=== PATIENT | female | born 1990 | race Caucasian/White ===

== ENCOUNTER 2016-04-18 20:49 | Outpatient (CLI) | payer OTHER ==
[~2016-04-18] VITALS: Ht 165.1 cm; Wt 80.3 kg
[~2016-04-18 20:49] MED LIST: PREN1TAB79 PO
[2016-04-18] MEDS ORDERED: FOLI-49 PO (21:12)
[2016-04-18 21:13] VITALS: Ht 165.1 cm; Wt 80.3 kg
[2016-04-18 21:14] VITALS: BP 102/58; PULSE 79; RESP 18
[2016-04-18] MEDS ORDERED: TERBUTALINE 1 ML ONE (22:07)
[2016-04-18 22:28] LABS: URINE BLOOD (Dip) POC Negative (NEGATIVE)
[2016-04-18] MEDS ORDERED: TERBUTALINE 1 MG/ML INJ SC ONE (22:30)
[2016-04-18 22:51] LABS: ADD UMIC YES; URINE BILIRUBIN (Dip) NEGATIVE (NEGATIVE); URINE BLOOD (Dip) NEGATIVE (NEGATIVE); URINE COLOR LT. YELLOW (YELLOW); URINE GLUCOSE (Dip) NEGATIVE (NEGATIVE); URINE KETONES (Dip) NEGATIVE (NEGATIVE); URINE LEUKOCYTE ESTERASE (Dip) 1+ (NEGATIVE); URINE NITRITE (Dip) NEGATIVE (NEGATIVE); URINE TOTAL PROTEIN (Dip) NEGATIVE (NEGATIVE); URINE UROBILINOGEN (Dip) 0.2 E.U./dL (0.1-1.0)
[2016-04-18 23:06] LABS: BACTERIA,URINE MODERATE; SQUAMOUS EPITHELIAL CELL,UR MANY; URINE RBCS NONE SEEN /HPF (0)
--- NOTE | 2016-04-18 23:29 | RADRPT ---
PROCEDURE: ULTRASOUND OBSTETRICAL CLINICAL INDICATION: 25-year-old female with contractions for size and date determination . TECHNIQUE: Multiple sonographic images of the pelvis were obtained. The images were reviewed on a PACS workstation. COMPARISON: Ultrasound biophysical profile obtained concurrently. FINDINGS: There is a single viable intrauterine gestation. Cardiac activity is present with 111 beats per min rachel. There is a vertex presentation. Measurements were made in order to determine age. The res ults are as follows: BPD = 8.13 cm, HC = 30.26 cm, AC = 31.76 cm, FL = 6.96 cm. This yields and estimated gestational ag e of approximately 34 weeks 3 days. The estimated date of delivery is May 27, 2016. The EFW = 26 01 +/- 390 g (5 lb 12 oz). The GP is 55%. The placenta is posterior. There is no evidence for an abruption or placenta previa. IMPRESSION: 1. Single viable intrauterine gestation of approximately 34 weeks 3 days with vertex presentation. The estimated date of delivery is May 27, 2016. 2. The estimated weight is 2601 +/- 390 g (5 lb 12 oz). The GP is 55%. .Jono Mar MD, Date Time Electronically viewed and signed by .Jono Mar MD, MD on 04/18/2016 23:29 .M/
--- NOTE | 2016-04-18 23:30 | RADRPT ---
PROCEDURE: ULTRASOUND BIOPHYSICAL PROFILE CLINICAL INDICATION: 25-year-old female in labor for viability. TECHNIQUE: Multiple sonographic images were obtained in order to perform a biophysical profile The images were reviewed on a PACS workstation. COMPARISON: Ultrasound OB obtained concurrently; ultrasound biophysical profile March 18, 2016. FINDINGS: The cervix appears closed with a length of 5.1 cm measured transvaginally. There is a single viable intrauterine gestation. There is a vertex presentation. Cardiac activity is present at 111 beats p er minute. The placenta is anterior. The results of the biophysical profile are as follows: breathing movement = 2/2 Gross body movement = 2/2 tone = 2/2 Qualitative amniotic fluid volume = 2/2 Amniotic fluid index equals 11.8 cm. This yields a biophysical profile score of 8/8. IMPRESSION: Biophysical profile score is 8/8. .Jono Mar MD, Date Time Electronically viewed and signed by .Jono Mar MD, MD on 04/18/2016 23:30 .M/
--- NOTE | 2016-04-19 01:42 | TRIAGE ---
OB Triage Datetime Report Generated by CPN: 04/19/2016 01:41 Datetime: 04/19/2016 00:10 Stage of : OB Triage Labor Evaluation Frequency: None noted or palpated Monitor Mode: External Resting Tone [place]: Relaxed Heart Rate FHR Baseline Rate: 120 Monitor Mode: External US Variability: Moderate 6-25 bpm Accelerations: 15X15 Decelerations: None Category: Category I Pain Assessment Pain Scale: 0 Pain Presence: None/Denies Pain Type: N/A Pain Assessment Comments: Pt denies any further pain or cramping Datetime: 04/19/2016 00:00 Stage of : OB Triage Labor Evaluation Frequency: Occasional Monitor Mode: External Duration (sec)2399: 40-50 Quality: Mild Pattern: Normal: <= 5 Contractions in 10 Minutes Resting Tone [place]: Relaxed Heart Rate FHR Baseline Rate: 115 Monitor Mode: External US FHR Baseline Changes: No Baseline Change Variability: Moderate 6-25 bpm Accelerations: 15X15 Decelerations: None Category: Category I Datetime: 04/18/2016 23:00 Stage of : OB Triage Labor Evaluation Frequency: Irregular Monitor Mode: External Duration (sec)2399: 40-100 Quality: Mild Pattern: Normal: <= 5 Contractions in 10 Minutes Resting Tone [place]: Relaxed Heart Rate FHR Baseline Rate: 115 Monitor Mode: External US Variability: Moderate 6-25 bpm Accelerations: 15X15 Decelerations: None Category: Category I Datetime: 04/18/2016 22:04 Stage of : OB Triage Datetime: 04/18/2016 22:00 Stage of : OB Triage Labor Evaluation Frequency: 2-10 Monitor Mode: External Duration (sec)2399: 40-80 Quality: Mild Pattern: Normal: <= 5 Contractions in 10 Minutes Resting Tone [place]: Relaxed Heart Rate FHR Baseline Rate: 120 Monitor Mode: External US FHR Baseline Changes: No Baseline Change Variability: Moderate 6-25 bpm Accelerations: 15X15 Decelerations: None Category: Category I Datetime: 04/18/2016 21:30 Stage of : OB Triage Datetime: 04/18/2016 21:00 Stage of : OB Triage Time of Arrival: 04/18/2016 20:45 EGA: 34.6 Arrived By: Ambulatory Arrived From: Home Chief Complaint: Back pain _ uc's since 1700 about q5mins. Spotting for 4-5 days. Movement: Decreased Contractions: Regular Time Contractions Began: 04/18/2016 17:00 Contractions: q5mins Rupture of Membranes: Denies Vaginal Bleeding: Small Vaginal Discharge: Present Recent Sexual Intercouse: Denies Abdominal Trauma: Not Applicable Patient Complaints: Contractions; Cramping; Back Pain Time Provider Notified: 04/18/2016 22:00 Provider Notified: Initial Plan: EFM, NST Labor Evaluation Frequency: x1 Monitor Mode: External Duration (sec)2399: 110 Quality: Mild Pattern: Normal: <= 5 Contractions in 10 Minutes Resting Tone [place]: Relaxed Heart Rate FHR Baseline Rate: 120 Monitor Mode: External US Variability: Moderate 6-25 bpm Accelerations: 15X15 Decelerations: None Category: Category I Datetime: 04/18/2016 20:57 Stage of : OB Triage Assessment Type: Triage Maternal Assessment Level of Consciousness: Fully Conscious DTR's/Clonus: DTRs 2+; No Clonus Headache: Denies Blurred Vision: No Respiratory Effort: Unlabored; Regular Rhythm; Equal Expansion Breath Sounds, Left: Clear and Equal Breath Sounds, Right: Clear and Equal Nausea/Vomiting: Present (Annotations: Nausea only) RUQ Epigastric Pain: Denies Lower Extremities Edema: Bilateral Lower Extremities Degree: 1+ Upper Extremities Edema: None Degree: None Facial Edema: None Temperature Route: Oral Fall Risk Assessment History of Falling: (0) No Secondary Diagnosis: (0) No Ambulatory Aid: (0) Bedrest/Nurse Assist IV Therapy: (0) No Gait: (0) Normal/Bedrest/Immobile Mental Status: (0) Oriented to Own Ability Fall Score: 0 Fall Risk Score Definition: No Risk: No action required Pain Assessment Pain Scale: 3 Pain Presence: Intermittent Pain Type: Cramping; Contraction Pain Location: Abdomen; Back Pain Relief Measures: Comfort Measures Pain Assessment Comments: Pt states pain @3/10 at this time but reports it's as high as 10/10 with some uc's. Datetime: 04/18/2016 20:56 Monitor Mode: External Contraction Comments: [place] applied Datetime: 04/18/2016 20:55 Heart Rate FHR Baseline Rate: 120 Monitor Mode: External US Comments: EFM applied Datetime: 03/18/2016 09:59 Fall Score: 0 Fall Risk Score Definition: No Risk: No action required Datetime: 03/18/2016 09:50 EGA: 30.3 Datetime: 02/11/2016 22:02 EGA: 30.3 Datetime: 02/11/2016 22:00 EGA: 24.2
--- NOTE | 2016-04-19 03:07 | PN ---
Date/Time of Note Date/Time of Note DATE: 04/19/16 TIME: 03:00 OB Subjective Subjective Subjective 25 Year-old with SIUP at 34 6/7 presents with a chief complaint of decreased FM and vaginal spotting. She has been receiving her care with Dr. Bravo. She states good movement. She denies nausea, vomiting, shortness of breath, chest pain, and abdominal pain between contractions, headache, visual changes, vaginal bleeding or LOF. OB Objective Objective Objective General: Patient appears well, alert and oriented, NAD, appropriate mood and affect ABD: gravid, soft, non-tender. Back: No CVA tenderness (B/L) LE: No clubbing, cyanosis, edema, thigh or calf tenderness bilaterally FHT: 140 bpm , moderate variability with acceleration, no deceleration-category I Contractions: Q 3-7 min initially, occasional after receiving terbutaline x1 SVE: closed/thick/high/cephalic/ intact membrane OB Assessment/Plan Other plan: 25 Year-old with SIUP at 34 6/7 presents with decreased FM, vaginal spotting and PTC. - FHR: No sign of metabolic acidosis- Category I - Continuous EFM, toco - Contractions: Q 3-7 min initially, occasional after receiving terbutaline x1 - Reactive NST. - US: BPP: 8/8, CL: 5.1, no placental abnormalities - She received terbutaline x1, not feeling any ucs. She felt multiple FM during observation in triage. Patient reassured - Symptoms and sign of labor, preeclampsia, kick count discussed with patient, she voiced understanding. All of her questions answered. - Patient was discharged home in stable condition with the appropriate discharge instructions provided. I would like patient to have close follow-up with her primary physician or outpatient clinic in 1-2 days or return to the ER for worsening symptoms or any other urgent concerns. MERCY VICTOR Apr 19, 2016 03:07
== END 2016-04-19 00:18 | disposition home or self-care (01) ==
LOC: OBT 20:49 → L-D 20:52 → OBT 04-19 00:18
PROVIDERS: ATTEND Obstetrics & Gynecology
DX: O36.8130 Decreased fetal movements, third trimester, not applicable or unspecified (principal); O26.853 Spotting complicating pregnancy, third trimester; O60.03 Preterm labor without delivery, third trimester; Z3A.34 34 weeks gestation of pregnancy
CPT/HCPCS: 76815; 76817; 76818; 81001; 87086; 96372; J3105; Z7500; 81003; G0463

== ENCOUNTER 2016-05-01 13:31 | Outpatient (CLI) | payer OTHER ==
[~2016-05-01] VITALS: Ht 165.1 cm; Wt 79.8 kg
[~2016-05-01 13:31] MED LIST changes: +FOLI-49 PO
[2016-05-01 13:40] VITALS: Ht 165.1 cm; Wt 79.8 kg
[2016-05-01 13:41] VITALS: BP 100/59; PULSE 89; RESP 18
[2016-05-01] MEDS: LACTATED RINGER'S 1,000 ML IV* SCH ×2 (14:03→14:52)
--- NOTE | 2016-05-01 15:53 | RADRPT ---
PROCEDURE: OB ultrasound for biophysical profile CLINICAL INDICATION: . TECHNIQUE: Multiple sonographic images of the pelvis were obtained. Transabdominal view of the gr avid uterus are available for review. The images were reviewed on a PACS workstation. COMPARISON: 04/18/2016 FINDINGS: breathing movement = 2/2 tone = 2/2 motion = 2/2 FELY = 2/2 FELY = 11.1 cm Single live intrauterine with cardiac activity. Heart rate equals 141 bpm. IMPRESSION: 1. Single viable intrauterine gestation. 2. Biophysical profile = 8/8. 3. FELY = 11.1 cm. RPTAT: QQ .Gregory Baez MD, Date Time Electronically viewed and signed by .Gregory Baez MD, on 05/01/2016 15:53 .M/
--- NOTE | 2016-05-01 16:20 | TRIAGE ---
OB Triage Datetime Report Generated by CPN: 05/01/2016 16:19 Datetime: 05/01/2016 15:14 Monitor Mode: External US Datetime: 05/01/2016 14:54 Labor Evaluation Frequency: 3-10 Monitor Mode: External Duration (sec)2399: 50-70 Quality: Mild Pattern: Normal: <= 5 Contractions in 10 Minutes Resting Tone [place]: Relaxed Heart Rate FHR Baseline Rate: 130 Monitor Mode: External US FHR Baseline Changes: No Baseline Change Variability: Moderate 6-25 bpm Accelerations: 15X15 Decelerations: None Category: Category I Pain Assessment Pain Scale: 6 Pain Presence: Intermittent Pain Type: Contraction Pain Location: Abdomen; Back Pain Relief Measures: Comfort Measures Membrane Status: Intact Datetime: 05/01/2016 14:00 Labor Evaluation Frequency: 2-7 Monitor Mode: External Duration (sec)2399: 50-70 Quality: Mild Pattern: Normal: <= 5 Contractions in 10 Minutes Resting Tone [place]: Relaxed Heart Rate FHR Baseline Rate: 130 Monitor Mode: External US FHR Baseline Changes: No Baseline Change Variability: Moderate 6-25 bpm Accelerations: 15X15 Decelerations: None Category: Category I Pain Assessment Pain Scale: 8 Pain Presence: Intermittent Pain Type: Contraction Pain Location: Abdomen; Back Pain Relief Measures: Comfort Measures Datetime: 05/01/2016 13:46 Vaginal Exam Dilatation (cms): 1.0 Effacement (%): 50 Station: -3 Exam By: ARIADNE Vaginal Bleeding: None Cervix, Consistency: Moderate Cervix, Position: Posterior Presentation 'A': Cephalic Datetime: 05/01/2016 13:40 Assessment Type: Triage Maternal Assessment Level of Consciousness: Fully Conscious DTR's/Clonus: DTRs 2+; No Clonus Headache: Denies Blurred Vision: No Respiratory Effort: Unlabored; Regular Rhythm Breath Sounds, Left: Clear and Equal Breath Sounds, Right: Clear and Equal Nausea/Vomiting: Denies RUQ Epigastric Pain: Denies Lower Extremities Edema: None Degree: None Upper Extremities Edema: None Degree: None Facial Edema: None Fall Risk Assessment History of Falling: (0) No Secondary Diagnosis: (0) No Ambulatory Aid: (0) Bedrest/Nurse Assist IV Therapy: (0) No Gait: (0) Normal/Bedrest/Immobile Mental Status: (0) Oriented to Own Ability Fall Score: 0 Fall Risk Score Definition: No Risk: No action required Datetime: 05/01/2016 13:39 Time of Arrival: 05/01/2016 13:30 EGA: 36.5 Arrived By: Wheelchair Arrived From: Home Chief Complaint: PT PRESENTS TO TRIAGE COMPLAINING OF CONTRACTIONS SINCE 1000 Movement: Present Contractions: Regular Time Contractions Began: 05/01/2016 10:00 Contractions: Q5 MINUTES Rupture of Membranes: Denies Vaginal Bleeding: None Vaginal Discharge: Denies Recent Sexual Intercouse: Denies Abdominal Trauma: Not Applicable Patient Complaints: Contractions Time Provider Notified: 05/01/2016 13:52 Provider Notified: [facility] Initial Plan: EFM/SVE/BPP/IV HYDRATION Datetime: 05/01/2016 13:37 Monitor Mode: External Monitor Mode: External US Pain Assessment Pain Scale: 8 Pain Presence: Intermittent Pain Type: Contraction Pain Location: Abdomen; Back Pain Relief Measures: Comfort Measures Datetime: 04/18/2016 21:00 EGA: 34.6 Datetime: 04/18/2016 20:57 Fall Score: 0 Fall Risk Score Definition: No Risk: No action required Datetime: 03/18/2016 09:59 Fall Score: 0 Fall Risk Score Definition: No Risk: No action required Datetime: 03/18/2016 09:50 EGA: 30.3 Datetime: 02/11/2016 22:02 EGA: 30.3 Datetime: 02/11/2016 22:00 EGA: 24.2
== END 2016-05-01 16:18 | disposition home or self-care (01) ==
LOC: OBT 13:31 → L-D 13:32 → OBT 16:18
PROVIDERS: ATTEND Obstetrics & Gynecology
DX: O60.03 Preterm labor without delivery, third trimester (principal); Z3A.36 36 weeks gestation of pregnancy
CPT/HCPCS: 36415; 76818; 96360; 96361; J7120; Z7500; G0463

== ENCOUNTER 2016-05-03 16:25 | Outpatient (CLI) | payer MEDICAID ==
[~2016-05-03] VITALS: Ht 165.1 cm; Wt 80.6 kg
[2016-05-03] MEDS ORDERED: LACTATED RINGER'S 1,000 ML IV SCH (17:00)
[2016-05-03] MEDS ORDERED: LACTATED RINGER'S 500 ML IV ONE (17:00)
[2016-05-03 17:02] VITALS: BP 112/65; PULSE 75; RESP 20; Ht 165.1 cm; Wt 80.6 kg
[2016-05-03 18:04] LABS: ADD UMIC YES; URINE BILIRUBIN (Dip) NEGATIVE (NEGATIVE); URINE BLOOD (Dip) TRACE (NEGATIVE); URINE COLOR LT. YELLOW (YELLOW); URINE GLUCOSE (Dip) NEGATIVE (NEGATIVE); URINE KETONES (Dip) NEGATIVE (NEGATIVE); URINE LEUKOCYTE ESTERASE (Dip) TRACE (NEGATIVE); URINE NITRITE (Dip) NEGATIVE (NEGATIVE); URINE TOTAL PROTEIN (Dip) NEGATIVE (NEGATIVE); URINE UROBILINOGEN (Dip) 0.2 E.U./dL (0.1-1.0)
[2016-05-03 18:22] LABS: BACTERIA,URINE FEW; SQUAMOUS EPITHELIAL CELL,UR MANY; URINE RBCS 0-2 /HPF (0)
--- NOTE | 2016-05-03 21:53 | QN ---
Documentation Comment Laborist CHIKIS PT 25 y.o. A1 with an IUP at 37 weeks c/o UC's since 1100 q 3 minutes.No vaginal bleeding. No leaking. PMHx: asthma. PSHx: none. POBHx: for all of her other pregnancies the pt was induced at 42 weeks, 41 weeks , and 40 weeks and the labors were from 40 hours long to the last that took 11 hours. NKDA. Social: Pt's mother called and told the RN that this pt has a h/o methamphetamine use and she has custody of her other children. BP= 112/65. Vaginal exam: 50%/2-3/-3. BPP 8/8 with an FELY of 12.3. NST: baseline 125 bpm with accels to 140 bpm. No decels. UC's were3-7 minutes but by d/c they had spaced out a fair amount. No change in her cervix after 3 hours of observation. A: IUP at 37 weeks. False labor. P: D/C home. Labor precautions reviewed. SHRUTHI DOW MD May 03, 2016 21:52
--- NOTE | 2016-05-04 00:32 | TRIAGE ---
OB Triage Datetime Report Generated by CPN: 05/04/2016 00:31 Datetime: 05/03/2016 21:35 Stage of : OB Triage Datetime: 05/03/2016 21:30 Stage of : OB Triage Datetime: 05/03/2016 21:15 Stage of : OB Triage Datetime: 05/03/2016 21:00 Stage of : OB Triage Monitor Mode: External Duration (sec)2399: 60 Quality: Mild Pattern: Normal: <= 5 Contractions in 10 Minutes Resting Tone [place]: Relaxed Heart Rate FHR Baseline Rate: 125 Monitor Mode: External US FHR Baseline Changes: No Baseline Change Variability: Moderate 6-25 bpm Accelerations: 15X15 Decelerations: None Category: Category I Datetime: 05/03/2016 20:53 Stage of : OB Triage Datetime: 05/03/2016 20:29 Stage of : OB Triage Datetime: 05/03/2016 20:08 Stage of : OB Triage Datetime: 05/03/2016 20:00 Labor Evaluation Frequency: 2-4 Monitor Mode: External Duration (sec)2399: 50-100 Quality: Mild Pattern: Normal: <= 5 Contractions in 10 Minutes Resting Tone [place]: Relaxed Heart Rate FHR Baseline Rate: 125 Monitor Mode: External US FHR Baseline Changes: No Baseline Change Variability: Moderate 6-25 bpm Accelerations: 15X15 Decelerations: None Category: Category I Datetime: 05/03/2016 19:16 Vaginal Exam Dilatation (cms): 2.5 Effacement (%): 50 Station: -3 Exam By: FLORENTINO QUINTANILLA Vaginal Bleeding: Normal Show Cervix, Consistency: Moderate Cervix, Position: Posterior Presentation 'A': Cephalic Datetime: 05/03/2016 19:13 Stage of : OB Triage Labor Evaluation Frequency: 3-7 Monitor Mode: External Duration (sec)2399: 50-90 Quality: Strong Pattern: Normal: <= 5 Contractions in 10 Minutes Resting Tone [place]: Relaxed Heart Rate FHR Baseline Rate: 115 Monitor Mode: External US Variability: Moderate 6-25 bpm Accelerations: 15X15 Decelerations: None Category: Category I Pain Assessment Pain Scale: 0 Pain Presence: None/Denies Datetime: 05/03/2016 19:10 Assessment Type: Triage Maternal Assessment Level of Consciousness: Fully Conscious DTR's/Clonus: DTRs 2+; No Clonus Headache: Denies Blurred Vision: No Respiratory Effort: Unlabored; Regular Rhythm; Equal Expansion Breath Sounds, Left: Clear and Equal Breath Sounds, Right: Clear and Equal Nausea/Vomiting: Denies RUQ Epigastric Pain: Denies Lower Extremities Edema: Bilateral Lower Extremities Degree: 1+ Upper Extremities Edema: None Degree: None Facial Edema: None Fall Risk Assessment History of Falling: (0) No Secondary Diagnosis: (0) No Ambulatory Aid: (0) Bedrest/Nurse Assist IV Therapy: (0) No Gait: (0) Normal/Bedrest/Immobile Mental Status: (0) Oriented to Own Ability Fall Score: 0 Fall Risk Score Definition: No Risk: No action required Datetime: 05/03/2016 17:53 Labor Evaluation Frequency: 2-7 Monitor Mode: External Duration (sec)2399: 50-90 Quality: Moderate Pattern: Normal: <= 5 Contractions in 10 Minutes Resting Tone [place]: Relaxed Heart Rate FHR Baseline Rate: 125 Monitor Mode: External US Variability: Moderate 6-25 bpm Accelerations: 15X15 Decelerations: None Category: Category I Datetime: 05/03/2016 16:43 Assessment Type: Triage Maternal Assessment Level of Consciousness: Fully Conscious DTR's/Clonus: DTRs 2+; No Clonus Headache: Denies Blurred Vision: No Respiratory Effort: Unlabored; Regular Rhythm; Equal Expansion Breath Sounds, Left: Clear and Equal Breath Sounds, Right: Clear and Equal Nausea/Vomiting: Denies RUQ Epigastric Pain: Denies Lower Extremities Edema: Bilateral Lower Extremities Degree: 1+ Upper Extremities Edema: None Degree: None Facial Edema: None Temperature Route: Axillary Fall Risk Assessment History of Falling: (0) No Secondary Diagnosis: (0) No Ambulatory Aid: (0) Bedrest/Nurse Assist IV Therapy: (0) No Gait: (0) Normal/Bedrest/Immobile Mental Status: (0) Oriented to Own Ability Fall Score: 0 Fall Risk Score Definition: No Risk: No action required Datetime: 05/03/2016 16:40 Time of Arrival: 05/03/2016 16:26 EGA: 37.0 Arrived By: Ambulatory Arrived From: Home Chief Complaint: CONTRACTIONS EVERY 3 MINS Movement: Present Contractions: Regular Time Contractions Began: 05/03/2016 11:00 Contractions: 2-6 Rupture of Membranes: Denies Vaginal Bleeding: None Vaginal Discharge: Denies Recent Sexual Intercouse: Denies Abdominal Trauma: Not Applicable Patient Complaints: Contractions Additional Patient Complaints: LYNDA CHARGE NURSE CALLED INFORMED THAT PT MOM CALLED AND INFORMED TH AT SHE IS TAKING CARE OF HER DAUGHTERS CHILDREN DUE TO 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 MATIAS Initial Plan: SVE, NST, MONITOR FOR 3 HOURS AND RECHECK FOR CERVICAL CHANGE, BPP/FELY Datetime: 05/03/2016 16:31 Pain Assessment Pain Scale: 8 Pain Presence: Intermittent Pain Type: Contraction Pain Location: Abdomen; Back Pain Goal: 2 Vaginal Exam Dilatation (cms): 2.5 Effacement (%): 50 Station: -3 Exam By: FLORENTINO RN Cervix, Consistency: Soft Cervix, Position: Posterior Presentation 'A': Cephalic Datetime: 05/01/2016 16:01 Labor Evaluation Frequency: X4 Monitor Mode: External Duration (sec)2399: 40-60 Quality: Mild Pattern: Normal: <= 5 Contractions in 10 Minutes Resting Tone [place]: Relaxed Heart Rate FHR Baseline Rate: 130 Monitor Mode: External US FHR Baseline Changes: No Baseline Change Variability: Moderate 6-25 bpm Accelerations: 15X15 Decelerations: None Category: Category I Pain Assessment Pain Scale: 6 Pain Presence: Intermittent Pain Type: Contraction Pain Location: Abdomen; Back Pain Relief Measures: Comfort Measures Datetime: 05/01/2016 15:59 Vaginal Exam Dilatation (cms): 1.0 Effacement (%): 50 Station: -3 Exam By: ARIADNE Vaginal Bleeding: None Cervix, Consistency: Moderate Cervix, Position: Posterior Presentation 'A': Cephalic Datetime: 05/01/2016 13:40 Fall Score: 0 Fall Risk Score Definition: No Risk: No action required Datetime: 05/01/2016 13:39 EGA: 36.5 Datetime: 04/18/2016 21:00 EGA: 34.6 Datetime: 04/18/2016 20:57 Fall Score: 0 Fall Risk Score Definition: No Risk: No action required Datetime: 03/18/2016 09:59 Fall Score: 0 Fall Risk Score Definition: No Risk: No action required Datetime: 03/18/2016 09:50 EGA: 30.3 Datetime: 02/11/2016 22:02 EGA: 30.3 Datetime: 02/11/2016 22:00 EGA: 24.2
== END 2016-05-03 21:35 | disposition home or self-care (01) ==
LOC: L-D 16:25 → OBT 16:25
PROVIDERS: ATTEND Obstetrics & Gynecology
DX: O47.1 False labor at or after 37 completed weeks of gestation (principal); Z3A.37 37 weeks gestation of pregnancy
CPT/HCPCS: 76818; 81001; 81003; 96360; 96361; J7120; Z7500; G0463

== ENCOUNTER 2016-05-28 17:23 | Outpatient (CLI) | payer MEDICAID ==
[~2016-05-28] VITALS: Ht 165.1 cm; Wt 83.4 kg
[2016-05-28 17:40] VITALS: Ht 165.1 cm; Wt 83.4 kg
--- NOTE | 2016-05-28 18:23 | RADRPT ---
PROCEDURE: US OB. CLINICAL INDICATION: Size and dates TECHNIQUE: Multiple sonographic images of the pelvis and gravid uterus were obtained. The images were reviewed on a PACS workstation. COMPARISON: 05/03/2016 FINDINGS: There is a single viable intrauterine gestation. Cardiac activity is present with 129 beats per min [place]. There is a fundal presentation. The placenta is anterior. There is no evidence for an abruption or placenta previa. There is a normal amount of amniotic fluid with an FELY = 11.8 cm. Measurements were made in order to determine age. The results are as follows: BPD =9.5 cm HC =33.8 cm AC =36.1 cm FL =7.7 cm Estimated gestational age of approximately 39 weeks and 1 day based on ultrasound measurements. Clinical age: 39 weeks and 4 days. The estimated date of delivery is 06/03/16, based on ultrasound measurements. The EFW = 3810 g, 72.5%, based on LMP age. RPTAT: AA IMPRESSION: Single viable intrauterine gestation of approximately 39 weeks and 1 day based on ultrasound measur ements. .Jay Schneider MD, Date Time Electronically viewed and signed by .Jay Schneider MD, on 05/28/2016 18:23 .S/
--- NOTE | 2016-05-28 18:24 | RADRPT ---
PROCEDURE: US OB biophysical profile. CLINICAL INDICATION: decreased movements, labor pain TECHNIQUE: Multiple sonographic images of the pelvis were obtained. The images were reviewed on a PACS workstation. COMPARISON: 05/03/2016 FINDINGS: There is a single viable intrauterine gestation. Cardiac activity is present with 127 beats per min rachel. There is a fundal presentation. The placenta is anterior. There is no evidence for an abruption or placenta previa. There is a normal amount of amniotic fluid with an FELY = 11.8 cm. Biophysical profile: movement 2/2 tone 2/2. breathing 2/2 FELY 2/2 Total 10/25 RPTAT: AA . IMPRESSION: Normal biophysical profile. . .Jay Schneider MD, Date Time Electronically viewed and signed by .Jay Schneider MD, MD on 05/28/2016 18:24 .S/
[2016-05-28] MEDS ORDERED: LACTATED RINGER'S 1,000 ML IV SCH (19:30)
--- NOTE | 2016-05-28 20:12 | PN ---
Date/Time of Note Date/Time of Note DATE: 05/28/16 TIME: 20:01 OB Subjective Subjective Subjective 25 yo P3013 @ 39+ wks, w ctx no vb, no lof, good FM OB Objective Objective Objective Abdomen- gravid, n/t SVE- 1/60/-2 FHT- Cat i [place]- irreg ctx Abdomen: WNL Cervical Dilatation: 1cm Effacement: 50% Station: -2 Membranes: Intact Accelerations: Accelerations Present Decelerations: No Decelerations Contractions on Admission: 6-10 Minutes Apart Intensity: Mild OB Assessment/Plan Other Assessment: 25 yo P3013 @ 39+ wks, r/o labor -reassuring status - latent labor Other plan: if cervix does not change,d/c home w labor precautions VIVIEN MAN MD May 28, 2016 20:11
[2016-05-28] MEDS ORDERED: CALC600T11 PO (21:51)
--- NOTE | 2016-05-28 23:01 | TRIAGE ---
OB Triage Datetime Report Generated by CPN: 05/28/2016 23:00 Datetime: 05/28/2016 22:00 Stage of : OB Triage Datetime: 05/28/2016 21:52 Stage of : OB Triage Labor Evaluation Frequency: 1-8 Monitor Mode: External Duration (sec)2399: 70-140 Quality: Mild Pattern: Normal: <= 5 Contractions in 10 Minutes Resting Tone [place]: Relaxed Contraction Comments: IRRITABILITY NOTED Heart Rate FHR Baseline Rate: 130 Monitor Mode: External US Variability: Moderate 6-25 bpm Accelerations: Prolonged Decelerations: None Category: Category I Comments: PT OFF MONITOR Pain Relief Measures: Comfort Measures Datetime: 05/28/2016 21:43 Pain Assessment Pain Scale: 6 Pain Presence: Intermittent Pain Type: Cramping Pain Location: Abdomen Pain Relief Measures: Comfort Measures Pain Assessment Comments: PT STATES UC STRENGTH ARE STILL THE SAME Vaginal Exam Dilatation (cms): 1.0 Effacement (%): 60 Station: -2 Exam By: DGS RN Vaginal Bleeding: None Cervix, Consistency: Soft Cervix, Position: Posterior Datetime: 05/28/2016 21:10 Temperature Route: Oral Pain Assessment Pain Scale: 6 Pain Presence: Intermittent Pain Type: Cramping Pain Location: Abdomen Pain Relief Measures: Comfort Measures Pain Assessment Comments: PT STATES HER PAIN LEVEL WHEN UC'S ARE PRESENT Datetime: 05/28/2016 21:07 Monitor Mode: Palpation Resting Tone [place]: Relaxed Contraction Comments: ABDOMEN SOFT UPON PALPATION Monitor Mode: External US Datetime: 05/28/2016 19:28 Stage of : OB Triage Labor Evaluation Frequency: 4-8 Monitor Mode: External Duration (sec)2399: 40-140 Quality: Mild Pattern: Normal: <= 5 Contractions in 10 Minutes Resting Tone [place]: Relaxed Contraction Comments: STRIP REVIEW FROM Heart Rate FHR Baseline Rate: 130 Monitor Mode: External US Variability: Moderate 6-25 bpm Accelerations: 15X15 Decelerations: None Category: Category I Comments: STRIP REVIEW FROM ; OFF MONITOR Pain Relief Measures: Comfort Measures Datetime: 05/28/2016 18:59 Stage of : OB Triage Vaginal Exam Dilatation (cms): 1.0 Effacement (%): 60 Station: -2 Exam By: DR FLORENCIO Vaginal Bleeding: None Cervix, Consistency: Soft Presentation 'A': Cephalic Datetime: 05/28/2016 18:53 Stage of : OB Triage Datetime: 05/28/2016 18:33 Labor Evaluation Frequency: 2-4 Monitor Mode: External Duration (sec)2399: 40-60 Quality: Mild Pattern: Normal: <= 5 Contractions in 10 Minutes Resting Tone [place]: Relaxed Heart Rate FHR Baseline Rate: 135 Monitor Mode: External US Variability: Moderate 6-25 bpm Accelerations: 15X15 Decelerations: None Category: Category I Pain Assessment Pain Scale: 10 Pain Presence: Intermittent Pain Type: Cramping Pain Goal: 3 Pain Relief Measures: Comfort Measures Pain Assessment Comments: WITH UC Datetime: 05/28/2016 17:47 Stage of : OB Triage Datetime: 05/28/2016 17:31 Stage of : OB Triage Assessment Type: Triage Maternal Assessment Level of Consciousness: Fully Conscious DTR's/Clonus: DTRs 2+; No Clonus Headache: Denies Blurred Vision: No Respiratory Effort: Unlabored; Regular Rhythm; Equal Expansion Breath Sounds, Left: Clear and Equal Breath Sounds, Right: Clear and Equal Nausea/Vomiting: Denies RUQ Epigastric Pain: Denies Lower Extremities Edema: None Degree: None Upper Extremities Edema: None Degree: None Facial Edema: None Temperature Route: Axillary Fall Risk Assessment History of Falling: (0) No Secondary Diagnosis: (0) No Ambulatory Aid: (0) Bedrest/Nurse Assist IV Therapy: (0) No Gait: (0) Normal/Bedrest/Immobile Mental Status: (0) Oriented to Own Ability Fall Score: 0 Fall Risk Score Definition: No Risk: No action required Labor Evaluation Frequency: X1 Monitor Mode: External Duration (sec)2399: 60 Quality: Mild Pattern: Normal: <= 5 Contractions in 10 Minutes Heart Rate FHR Baseline Rate: 135 Monitor Mode: External US Variability: Moderate 6-25 bpm Decelerations: None Category: Category I Pain Assessment Pain Scale: 10 Pain Presence: Intermittent Pain Type: Cramping; Contraction Pain Location: Abdomen Pain Goal: 3 Pain Relief Measures: Comfort Measures Vaginal Exam Dilatation (cms): 1.0 Effacement (%): 60 Station: -2 Exam By: Gray WADE Vaginal Bleeding: None Cervix, Consistency: Soft Datetime: 05/28/2016 17:30 Time of Arrival: 05/28/2016 17:20 EGA: 39.4 Arrived By: Ambulatory Arrived From: Home Chief Complaint: C/O UC'S Q3 MIN, DENIES BLEEDING OR LEAKING OF FLUID Movement: Present Contractions: Regular Rupture of Membranes: Denies Vaginal Bleeding: None Vaginal Discharge: Denies Recent Sexual Intercouse: Yes Abdominal Trauma: Not Applicable Patient Complaints: Contractions Time Provider Notified: 05/28/2016 17:50 Provider Notified: FLORENCIO Initial Plan: MONITOR, VE, OBS X 2 HOURS Datetime: 05/03/2016 19:10 Fall Score: 0 Fall Risk Score Definition: No Risk: No action required Datetime: 05/03/2016 16:43 Fall Score: 0 Fall Risk Score Definition: No Risk: No action required Datetime: 05/03/2016 16:40 EGA: 36.0 Datetime: 05/01/2016 13:40 Fall Score: 0 Fall Risk Score Definition: No Risk: No action required Datetime: 05/01/2016 13:39 EGA: 35.5 Datetime: 04/18/2016 21:00 EGA: 33.6 Datetime: 04/18/2016 20:57 Fall Score: 0 Fall Risk Score Definition: No Risk: No action required Datetime: 03/18/2016 09:59 Fall Score: 0 Fall Risk Score Definition: No Risk: No action required Datetime: 03/18/2016 09:50 EGA: 29.3 Datetime: 02/11/2016 22:02 EGA: 29.3 Datetime: 02/11/2016 22:00 EGA: 24.2
== END 2016-05-28 22:02 | disposition home or self-care (01) ==
LOC: OBT 17:23 → L-D 17:25 → OBT 22:02
PROVIDERS: ATTEND Obstetrics & Gynecology
DX: O47.1 False labor at or after 37 completed weeks of gestation (principal); Z3A.39 39 weeks gestation of pregnancy
CPT/HCPCS: 76815; 76818; J7120; Z7500; G0463

== ENCOUNTER 2016-05-31 08:31 | Inpatient (IN) | payer MEDICAID ==
[~2016-05-31] VITALS: Ht 165.1 cm; Wt 82.8 kg
[~2016-05-31 08:31] MED LIST changes: +CALC600T11 PO
[2016-06-03 09:00] VITALS: Ht 165.1 cm; Wt 82.8 kg
[2016-06-03 09:01] VITALS: BP 106/68; PULSE 96; RESP 18
[2016-06-03 09:26] LABS: ADD SCAN DIFF NO
[2016-06-03 09:30] LABS: BASOPHILS % 0.1 % (0.0-2.0); EOSINOPHILS % 0.4 % (0.0-7.0); HEMATOCRIT 34.2 % (37.0-47.0); HEMOGLOBIN 11.7 g/dl (12.0-16.0); LYMPHOCYTES # 1.8 10^3/ul (0.8-2.9); LYMPHOCYTES % 23.2 % (15.0-51.0); MEAN CORPUSCULAR HEMOGLOBIN 32.5 pg (29.0-33.0); MEAN CORPUSCULAR HGB CONC 34.2 g/dl (32.0-37.0); MEAN PLATELET VOLUME 8.6 fl (7.4-10.4); MONOCYTE # 0.6 10^3/ul (0.3-0.9); MONOCYTES % 7.6 % (0.0-11.0); NEUTROPHIL # 5.2 10^3/ul (1.6-7.5); NEUTROPHILS % 67.7 % (39.0-77.0); PLATELET COUNT 203 10^3/UL (140-415); RED CELL DISTRIBUTION WIDTH 12.9 % (11.5-14.5); WHITE BLOOD COUNT 7.6 10^3/ul (4.8-10.8)
[2016-06-03] MEDS ORDERED: BUTORPHANOL 2 MG INJ IV PRN (09:30)
[2016-06-03] MEDS ORDERED: LACTATED RINGER'S 1,000 ML IV PRN (09:30)
[2016-06-03] MEDS ORDERED: LIDOCAINE 1% (MPF) 30 ML INJ INJ PRN (09:30)
[2016-06-03] MEDS ORDERED: OXYTOCIN 30 UNITS/LR 500 ML IV SCH ×3 (09:30)
[2016-06-03] MEDS ORDERED: OXYTOCIN 30 UNITS/LR 500 ML IV PRN (09:30)
[2016-06-03] MEDS ORDERED: CARBOPROST 250 MCG INJ IM PRN (09:30)
[2016-06-03] MEDS ORDERED: METHYLERGONOVINE 0.2 MG INJ IM PRN (09:30)
[2016-06-03] MEDS ORDERED: MISOPROSTOL 200 MCG TAB PR PRN (09:30)
[2016-06-03] MEDS ORDERED: IBUPROFEN 600 MG TAB PO PRN (09:30)
[2016-06-03] MEDS: LACTATED RINGER'S 1,000 ML IV SCH ×3 (09:41→20:22)
[2016-06-03 09:45] LABS: INR 0.88; PROTIME 11.9 Sec (12.2-14.2); PT RATIO 0.9
[2016-06-03 09:46] LABS: PARTIAL THROMBOPLASTIN TIME 25.8 Sec (25.0-35.0)
[2016-06-03] MEDS ORDERED: MINERAL OIL LIGHT 10 ML VIAL TOP ONE (15:30)
[2016-06-03] MEDS ORDERED: FENTAnyl 2MCG/ML-ROPIV 0.2% 100 ML BAG EPI SCH (19:00)
[2016-06-03] MEDS ORDERED: DIPHENHYDRAMINE 50 MG INJ IV PRN (19:00)
[2016-06-03] MEDS ORDERED: NALOXONE (0.4 MG/ML) INJ IV PRN (19:00)
[2016-06-03] MEDS ORDERED: ONDANSETRON 4 MG INJ IV PRN (19:00)
[2016-06-04] VITALS (7 sets, daily range): BP systolic 94–121; BP diastolic 50–71; PULSE 72–80; RESP 15–18
[2016-06-04] MEDS: LACTATED RINGER'S 1,000 ML IV* SCH ×3 (00:44→16:07)
[2016-06-04] MEDS: OXYTOCIN 30 UNITS/LR 500 ML IV SCH ×2 (00:44→04:44)
--- NOTE | 2016-06-04 00:44 | LDN ---
Date/Time of Note Date/Time of Note DATE: 06/04/16 TIME: 00:42 Delivery Summary baby wt 8lbs 12 oz Placenta Delivered: Spontaneously Meconium: none Perineum intact?: Yes Estimated blood loss: 150 Sponge & Needle done & correct: Yes All needle counts correct: Yes Problems: Delivery Information Apgars 1 Minute: 9 5 Minute: 9 Suctioning Nose & mouth suctioned at nallely: Yes Umbilical Cord Umbilical cord with: 3 Vessels Cord presentations: nuchal cord Nuchal cord present X: 1 Cord Blood was obtained: Yes LEIGHA CHERRY Jun 04, 2016 00:44
[2016-06-04] MEDS ORDERED: OXYTOCIN 30 UNITS/LR 500 ML IV PRN (01:00)
[2016-06-04] MEDS ORDERED: MISOPROSTOL 200 MCG TAB PR PRN (01:00)
[2016-06-04] MEDS ORDERED: ACETAMINOPHEN 325 MG TAB PO PRN (01:00)
[2016-06-04] MEDS ORDERED: MAGNESIUM HYDROXIDE 30ML CUP PO PRN (01:00)
[2016-06-04] MEDS ORDERED: METHYLERGONOVINE 0.2 MG INJ IM PRN (01:00)
[2016-06-04] MEDS ORDERED: SENNA/DOCUSATE NA (8.6MG/50MG) TAB PO PRN (01:00)
[2016-06-04] MEDS ORDERED: CARBOPROST 250 MCG INJ IM PRN (01:00)
--- NOTE | 2016-06-04 01:54 | DELSUM ---
Delivery Summary A-C Datetime Report Generated by CPN: 06/04/2016 01:53 DELIVERY PERSONNEL Wholesale Buyer: Long, Virgie MATERNAL INFORMATION Delivery Anesthesia: Epidural Medications in Delivery: Oxytocin 30ml in LR Estimated Blood Loss (ml): 200 Placenta Cultured: No Maternal Complications: None LABOR SUMMARY EDC: 05/31/2016 00:00 EDC: 05/31/2016 00:00 No. Babies in Womb: 1 Attempted: No Labor Anesthesia: Epidural LABOR INFORMATION Reason for Induction: Postterm Onset of Labor: UC's since February Complete Dilatation: 06/04/2016 00:00 Oxytocin: Induction Group B Beta Strep: Negative Group B Beta Strep: Done, Result Unknown Antibiotics # of Doses: 0 Steroids Given: None Reason Steroids Not Administered: Not Applicable MEMBRANES Membranes Rupture Method: Spontaneous Rupture of Membranes: 06/03/2016 23:38 Length of Rupture (hr): 0.55 Amniotic Fluid Color: Light Meconium Amniotic Fluid Amount: Small Amniotic Fluid Odor: None STAGES OF LABOR Stage 2 hr: 0 Stage 2 min: 11 Stage 3 hr: 0 Stage 3 min: 15 VAGINAL DELIVERY Episiotomy: None Laceration Extension: N/A Laceration Type: None Laceration Repair: Not Applicable Initial Vag Sponge Count: 10 Final Vag Sponge Count: 10 Initial Vag Sharps Count: 1 Final Vag Sharps Count: 1 Sponge Count Correct: Yes Sharps Count Correct: Yes BABY A INFORMATION Delivery Date/Time: 06/04/2016 00:11 Method of Delivery: Vaginal Born in Route : No : N/A Forceps: N/A Vacuum Extraction: N/A Shoulder Dystocia : N/A SHOULDER DYSTOCIA BABY A Infant Delivery Date/Time: 06/04/2016 00:11 PRESENTATION/POSITION BABY A Presentation: Cephalic Presentation: Cephalic Presentation: Cephalic Presentation: Cephalic Presentation: Cephalic Cephalic Presentation: Vertex Vertex Position: Left Occipital Posterior Breech Presentation: N/A PLACENTA INFORMATION BABY A Placenta Delivery Time : 06/04/2016 00:26 Placenta Method of Delivery: Spontaneous Placenta Status: Delivered SCORES BABY A Heart Rate 1 min: >100 bpm Resp Effort 1 min: Good Cry Reflex Irritability 1 min: Cough/Sneeze/Pulls Away Muscle Tone 1 min: Active Motion Color 1 min: Body [place], Extremit Blue Resuscitation Effort 1 min: Tactile Stimulation SCORE 1 MIN: 9 Heart Rate 5 min: >100 bpm Resp Effort 5 min: Good Cry Reflex Irritability 5 min: Cough/Sneeze/Pulls Away Muscle Tone 5 min: Active Motion Color 5 min: Body [place], Extremit Blue Resuscitation Effort 5 min: Tactile Stimulation SCORE 5 MIN: 9 INFANT INFORMATION BABY A Gestational Age at Delivery: 40.4 Gestational Status: Full Term- 39- 40.6 Weeks Infant Outcome : Liveborn Infant Condition : Stable Sex: Female IDENTIFICATION/MEDS BABY A ID Band Number: [id number] ID Band Location: Right Leg; Left Arm Sensor Applied: Yes Sensor Number: [id number] Sensor Location : Cord Clamp Vitamin K Given : Not Given Erythromycin Given: Not Given WEIGHT/LENGTH BABY A Birthweight (gm): 3955 Weight (lb): 8 Weight (oz): 12 Length (in): 21.00 Infant Length (cm): 53.34 CORD INFORMATION BABY A No. Cord Vessels: 3 Nuchal Cord : Around Neck x1, Loose Cord Blood Taken: Yes Infant Suction: Mouth; Nose ASSESSMENT BABY A Infant Complications: Meconium Physical Findings at Delivery: Within Normal Limits Infant Respirations: Appears Normal Cost Clerk/ALS Called : No Care By: ALAINA Brito RN Transferred To: Remains with Mother
[2016-06-04] MEDS: IBUPROFEN 600 MG TAB PO SCH ×3 (06:00→13:09)
[2016-06-04] MEDS: LACTATED RINGER'S 1,000 ML IV SCH (09:06)
[2016-06-04 10:17] LABS: ADD SCAN DIFF NO
[2016-06-04 10:20] LABS: BASOPHILS % 0.1 % (0.0-2.0); EOSINOPHILS % 0.2 % (0.0-7.0); HEMATOCRIT 28.1 % (37.0-47.0); HEMOGLOBIN 9.6 g/dl (12.0-16.0); LYMPHOCYTES # 1.2 10^3/ul (0.8-2.9); LYMPHOCYTES % 14.3 % (15.0-51.0); MEAN CORPUSCULAR HEMOGLOBIN 32.3 pg (29.0-33.0); MEAN CORPUSCULAR HGB CONC 34.2 g/dl (32.0-37.0); MEAN CORPUSCULAR VOLUME 94.6 fl (82.0-101.0); MEAN PLATELET VOLUME 8.5 fl (7.4-10.4); MONOCYTE # 0.6 10^3/ul (0.3-0.9); MONOCYTES % 6.4 % (0.0-11.0); NEUTROPHIL # 6.6 10^3/ul (1.6-7.5); NEUTROPHILS % 77.9 % (39.0-77.0); PLATELET COUNT 143 10^3/UL (140-415); RED BLOOD COUNT 2.97 10^6/ul (4.20-5.40); RED CELL DISTRIBUTION WIDTH 12.7 % (11.5-14.5); WHITE BLOOD COUNT 8.5 10^3/ul (4.8-10.8)
[2016-06-04] MEDS: ACETAMINOPHEN/CODEINE #3 TAB PO PRN (16:26)
[2016-06-05 04:05] VITALS: BP 100/59; PULSE 70; RESP 18
[2016-06-05] MEDS: ACETAMINOPHEN/CODEINE #3 TAB PO PRN (05:13)
[2016-06-05] MEDS: IBUPROFEN 600 MG TAB PO SCH ×3 (06:00→11:57)
--- NOTE | 2016-06-05 11:04 | DS ---
Date/Time of Note Date/Time of Note DATE: 06/05/16 TIME: 11:00 Obstetrical Discharge Record Final Diagnosis Final Diagnosis: Term delivered Vaginal Delivery Obstetrical Delivery: Spontaneous Complications Augmentation: Yes Induction: Yes Condition on Discharge Physical Assessment Last Vitals: T= 98.2 BP 100/59 Voiding: Yes Bowel Movement: Yes Breast: Soft, non-tender Fundus: Firm Calf Tenderness: No Patient Condition: Good SHRUTHI DOW MD Jun 05, 2016 11:03
--- NOTE | 2016-06-05 11:05 | PD.PPDC ---
MOBILE MARKETING MANAGER Discharge Instruction Condition Patient Condition: Good Diet Diet: Resume Regular Diet Activity/Restrictions Activity: Normal Activity May Shower Restrictions: No Sexual Activity Nothing in the Vagina No [place] No Tampons, douche Follow-up Follow-up with Physician: 6, Week/Weeks Return to clinic for [employer]VE[employer] WORK[employer] Instructions: Fever greater than 101 Chills Worsening abdominal pain Excessive Vaginal Bleeding OB Instructions: Breast Tenderness Depression SHRUTHI DOW MD Jun 05, 2016 11:04
[2016-06-05] MEDS ORDERED: DIPHTH/TET/ACEL PERTUSS (ADULT) 0.5 ML VIAL IM* ONE (13:00)
== END 2016-06-05 15:02 | disposition home or self-care (01) | DRG 775 ==
LOC: EDSTATUS 08:31 → L-D 06-03 08:33 → PP1 06-04 02:51
PROVIDERS: ADMIT Obstetrics & Gynecology; ATTEND Obstetrics & Gynecology
PROC: 10E0XZZ Delivery of Products of Conception, External Approach (ICD-10-PCS; principal; 2016-06-04)
PROC: 3E00X4Z Introduction of Serum, Toxoid and Vaccine into Skin and Mucous Membranes, External Approach (ICD-10-PCS; 2016-06-05)
DX: O69.81X0 Labor and delivery complicated by cord around neck, without compression, not applicable or unspecified (principal); O48.0 Post-term pregnancy; Z23 Encounter for immunization; Z3A.40 40 weeks gestation of pregnancy; Z37.0 Single live birth
CPT/HCPCS: 62319; 85025; 85610; 85730; 86592; 86703; 86900; 86901; 87340; 90715; J2590; J3010; J7120

== ENCOUNTER 2016-09-16 10:21 | Day surgery (SDC) | payer MEDICAID ==
[~2016-09-16] VITALS: Ht 165.1 cm; Wt 75.7 kg
[~2016-09-16 10:21] MED LIST changes: +GLYCOPYRROLATE 0.4 MG INJ ONE; +NEOSTIGMINE 3 MG/3 ML SYRINGE ONE
[2016-09-16 11:51] VITALS: Ht 165.1 cm; Wt 75.7 kg
[2016-09-16 12:01] VITALS: BP 114/59; PULSE 81; RESP 16
[2016-09-16] MEDS ORDERED: BUPIVACAINE 0.25%/EPI (SDV) 30 ML INJ ONE (12:06)
[2016-09-16] MEDS ORDERED: FENTAnyl 50 MCG/ML VIAL ONE (12:45)
[2016-09-16] MEDS ORDERED: LIDOCAINE 2% (SDV) 5 ML INJ ONE (12:57)
[2016-09-16] MEDS ORDERED: SUCCINYLCHOLINE CHLORIDE 100 MG/5 ML SYG IV ONE (12:57)
[2016-09-16] MEDS ORDERED: ROCURONIUM 50 MG INJ ONE (12:57)
[2016-09-16] MEDS ORDERED: PROPOFOL 20 ML ONE (12:57)
[2016-09-16] MEDS ORDERED: CEFAZOLIN 1 GM INJ ONE (12:57)
[2016-09-16] MEDS ORDERED: MEPERIDINE 25 MG INJ IV PRN (13:30)
[2016-09-16] MEDS ORDERED: FENTAnyl 50 MCG/ML VIAL IV PRN ×2 (13:30)
[2016-09-16] MEDS ORDERED: HYDROmorphONE (0.2 MG/ML) 10ML SYG IV PRN ×3 (13:30)
[2016-09-16] MEDS ORDERED: ONDANSETRON 4 MG INJ IV PRN (13:30)
[2016-09-16] MEDS ORDERED: DIPHENHYDRAMINE 50 MG INJ IV PRN (13:30)
[2016-09-16] MEDS ORDERED: METOCLOPRAMIDE 10 MG INJ IV PRN (13:30)
[2016-09-16] MEDS ORDERED: ROPIVACAINE 0.5 % 30 ML VIAL ONE (13:35)
--- NOTE | 2016-09-16 14:08 | OPR ---
Date/Time of Note Date/Time of Note DATE: 09/16/16 TIME: 13:51 Operative Report Free Text/Dictation 25 years old white female P4 request for bilateral tubal ligation Procedure Date: Sep 16, 2016 Preoperative Diagnosis Request for bilateral tubal ligation Postoperative Diagnosis Same as above Operation Performed Under satisfactory general anesthesia patient prepped and draped and placed in supine position ,2 inches Pfannenstiel incision was made incision carried through the subcutaneous tissue , fascia incised to the length of incision, rectus muscle divided in midline, peritoneum entered through a transverse incision, exploration of abdomen normal size uterus normal-appearing bilateral tubes and ovaries, right fallopian tube was identified ampullar section of the tube grasped by a [employer] loop was made suture material used number 0 plain catgut was reinforced with the same suture material top of the loop three quarters of inch resected cut end of the tube was cauterized specimen submitted to the pathology same procedure performed for the opposite side, peritoneal cavity irrigated with warm saline sponge needle and instrument reported to be correct abdominal peritoneum closed with pursestring 2-0 chromic catgut rectus muscle approximated with 2 interrupted 2-0 chromic catgut, fascia closed with 0 PDS. In continuous fashion, subcutaneous tissue approximated with 2 interrupted 2-0 chromic catgut ,skin closed with subcuticular 3-0 Monocryl, patient tolerated procedure well ,estimated blood loss less than 5 cc she transferred to recovery room in good condition Surgeon: LEOPOLDO MATIAS MD Second Sales Representative Sales Manager: NATA MCKEON Anesthesia: general Estimated Blood Loss: none Specimens 2 separate segments of right and left fallopian tube sent to the pathology Complications: None Pt Condition Post Procedure: stable LEOPOLDO MATIAS MD Sep 16, 2016 14:03
[2016-09-16 14:11] VITALS: BP 132/79; RESP 29
[2016-09-16 14:14] VITALS: BP 136/74; PULSE 70; RESP 24
[2016-09-16] MEDS ORDERED: KETOROLAC 30 MG INJ IV STA (14:25)
[2016-09-16 14:26] VITALS: BP 135/78; PULSE 66; RESP 34
[2016-09-16 14:31] VITALS: BP 111/56; PULSE 58; RESP 20
[2016-09-16 15:15] VITALS: BP 126/72; PULSE 94; RESP 18
== END 2016-09-16 16:10 | disposition home or self-care (01) ==
LOC: SDS 10:21
PROVIDERS: ATTEND Obstetrics & Gynecology
DX: Z30.2 Encounter for sterilization (principal); J45.909 Unspecified asthma, uncomplicated
CPT/HCPCS: 58600; 88302; J0690; J1170; J1885; J2405; J2710; J2795; J3010; J7999; Z7512; Z7610

== ENCOUNTER 2016-10-03 20:54 | Inpatient (IN) | payer MEDICAID ==
[~2016-10-03] VITALS: Ht 165.1 cm; Wt 75.8 kg
[2016-10-03] MEDS ORDERED: ONDANSETRON 4 MG INJ IV STA (21:53)
[2016-10-03] MEDS ORDERED: morphine 4 MG/ML VIAL IV STA (21:53)
[2016-10-03] MEDS ORDERED: SOD CHLORIDE 0.9% 1,000 ML IV STA (21:53)
--- NOTE | 2016-10-03 22:03 | ERD ---
ER Documentation Chief Complaint Date/Time DATE: 10/03/16 TIME: 21:56 Chief Complaint RLQ ABD PAIN WITH N/V (NO VOMITING NOTED NOW); TUBAL SX 09/16 HPI 25-year-old female presents in emergency department for complaints of right lower quadrant abdominal pain and vomiting that started today. Patient described pain as sharp pain, 6/10 scale, accompanied with vomiting. Patient had a bilateral tubal ligation done 09/16/2016. Patient is complaining of fever , denies any hematuria or dysuria. Patient does feel constipated. Patient denies any sick contacts. Patient denies any flank pain. ROS All systems reviewed and are negative except as per history of present illness. Medications Home Meds No Active Prescriptions or Reported Meds Allergies Allergies: Coded Allergies: Coconut (Verified Allergy, Severe, SWOLLEN, 09/16/16) latex (Verified Allergy, Severe, skin rash/ HIVE, 09/16/16) pineapple (Verified Allergy, Severe, SWOLLEN, 09/16/16) PMhx/Soc History of Surgery: No Anesthesia Reaction: No Hx Neurological Disorder: No Hx Respiratory Disorders: Yes (ASTHMA) Hx Cardiac Disorders: No Hx Psychiatric Problems: No Hx Miscellaneous Medical Probl: No Hx Alcohol Use: Yes (SOMETIME) Hx Substance Use: No Hx Tobacco Use: No FmHx Family History: No coronary disease, No diabetes, No other Physical Exam Vitals Vital Signs Date Time Temp Pulse Resp B/P Pulse Ox O2 Delivery O2 Flow Rate FiO2 10/03/16 21:12 99.3 85 20 127/67 97 Physical Exam GENERAL: The patient is well developed and appropriate for usual state of health, in no apparent distress. CHEST: Clear to auscultation bilaterally. There are no rales, wheezes or rhonchi. HEART: Regular rate and rhythm. No murmurs, clicks, rubs or gallops. No S3 or S4. ABDOMEN: Soft, noted RLQ tenderness. Good bowel sounds. No rebound or guarding. No gross peritonitis. No gross organomegaly or masses. BACK: No midline or flank tenderness. EXTREMITIES: Equal pulses bilaterally. There is no peripheral clubbing, cyanosis or edema. No focal swelling or erythema. Full range of motion. Grossly neurovascularly intact. NEURO: Alert and oriented. Cranial nerves 2-12 intact. Motor strength in all 4 extremities with 5/5 strength. Sensation grossly intact. Normal speech and gait. SKIN: There is no apparent rash or petechia. The skin is warm and dry. HEMATOLOGIC AND LYMPHATIC: There is no evidence of excessive bruising or lymphedema. No gross cervical, axillary, or inguinal lymphadenopathy. Result Diagram: 10/03/16224910/03/162249 Results 24 hrs Laboratory Tests Test 10/03/16 22:50 10/04/16 00:07 White Blood Count 10.210^3/ul Red Blood Count 4.0210^6/ul Hemoglobin 12.1g/dl Hematocrit 35.6% Mean Corpuscular Volume 88.6fl Mean Corpuscular Hemoglobin 30.1pg Mean Corpuscular Hemoglobin Concent 34.0g/dl Red Cell Distribution Width 11.9% Platelet Count 13892^3/UL Mean Platelet Volume 8.4fl Neutrophils % 87.4% Lymphocytes % 7.3% Monocytes % 4.4% Eosinophils % 0.0% Basophils % 0.2% Nucleated Red Blood Cells % 0.0/100WBC Neutrophils # 8.910^3/ul Lymphocytes # 0.710^3/ul Monocytes # 0.510^3/ul Eosinophils # 0.010^3/ul Basophils # 0.010^3/ul Nucleated Red Blood Cells # 0.010^3/ul Sodium Level 141mmol/L Potassium Level 4.1mmol/L Chloride Level 98mmol/L Carbon Dioxide Level 28mmol/L Anion Gap 19 Blood Urea Nitrogen 12mg/dl Creatinine 0.89mg/dl Glucose Level 109mg/dl Calcium Level 9.8mg/dl Total Bilirubin 0.6mg/dl Direct Bilirubin 0.00mg/dl Indirect Bilirubin 0.6mg/dl Aspartate Amino Transf (AST/SGOT) 17IU/L Alanine Aminotransferase (ALT/SGPT) 24IU/L Alkaline Phosphatase 63IU/L Total Protein 7.5g/dl Albumin 4.4g/dl Globulin 3.10g/dl Albumin/Globulin Ratio 1.41 Lipase 26U/L Urine Color YELLOW Urine Clarity SLIGHTLY CLOUDY Urine pH 6.0 Urine Specific [place] 1.019 Urine Ketones NEGATIVEmg/dL Urine Nitrite NEGATIVEmg/dL Urine Bilirubin NEGATIVEmg/dL Urine Urobilinogen NEGATIVEmg/dL Urine Leukocyte Esterase NEGATIVELeu/ul Urine Microscopic RBC 2/HPF Urine Microscopic WBC 2/HPF Urine Squamous Epithelial Cells FEW/HPF Urine Bacteria FEW/HPF Urine Mucus FEW/HPF Urine Hemoglobin NEGATIVEmg/dL Urine Glucose NEGATIVEmg/dL Urine Total Protein NEGATIVEmg/dl Current Medications Medications (Trade) Dose Ordered Sig/Yesenia Route PRN Reason Start Time Stop Time Status Last Admin Dose Admin Sodium Chloride (NS) 1,000 ml @ 1,000 mls/hr Q1H STAT IV 10/03/16 21:53 10/03/16 22:52 DC 10/03/16 22:57 Morphine Sulfate (morphine) 4 mg ONCE STAT IV 10/03/16 21:53 10/03/16 21:54 DC 10/03/16 22:56 Ondansetron HCl 4 mg 4 mg ONCE STAT IV 10/03/16 21:53 10/03/16 21:54 DC 10/03/16 22:56 Sodium Chloride (NS) 100 ml @ ud STK-MED ONCE .ROUTE 10/04/16 00:20 10/04/16 00:21 DC 10/04/16 00:34 Iohexol (Omnipaque 300mg/ ml) 150 ml STK-MED ONCE .ROUTE 10/04/16 00:20 10/04/16 00:21 DC 10/04/16 00:34 Morphine Sulfate (morphine) 4 mg ONCE STAT IV 10/04/16 01:49 10/04/16 01:52 DC 10/04/16 02:01 Patient was given medication for pain here in emergency department, after treatment, patient verbalized feeling much better. Patient's pain is improved.Patient was given Zofran here in the emergency department. After treatment, patient was able to tolerate po fluids here in the emergency department without any vomiting. There is no signs and symptoms of dehydration. Normal saline IV bolus was given here in emergency department for rehydration, patient tolerated IV fluids. PROCEDURE: CT abdomen and pelvis with intravenous contrast. CLINICAL INDICATION: Pain. TECHNIQUE: CT of the abdomen/pelvis was performed utilizing axial images with reconstructions in sagittal and coronal planes after uneventful administration of 100 cc Omnipaque 300. The administered radiation dose is CTDI 15.2 mGy, DLP 857 mGy-cm. COMPARISON: No pertinent prior examinations were submitted for comparison. FINDINGS: Visualized Chest: The visualized lung bases are clear. Abdomen: The liver, spleen, pancreas, gallbladder,and adrenal glands are unremarkable. The kidneys are without hydronephrosis. No definite urinary calculi are seen. The appendix is enlarged, measuring up to 12 mm. There are some mild periappendiceal inflammatory changes. No regional fluid collections are seen. There is no evidence of bowel obstruction. There is no evidence of intra-abdominal adenopathy or free fluid. Pelvis: There is no evidence of pelvic adenopathy. The uterus and ovaries are without enlargement. The urinary bladder is unremarkable. There is no pelvic free fluid. Osseous structures: Unremarkable. IMPRESSION: Appendicitis. RPTAT: HIKT .Larry Reddy MD, MD Date Time Electronically viewed and signed by .Larry Reddy MD, on 10/04/2016 01:42 .T/ CC: FAVIOLA JESUS NP Procedures/MDM Medical Decision Making: Patient's symptoms most like it consistent with acute appendicitis as seen in the CT scan abdomen and pelvis. I discussed this case with my attending physician, Dr. Beckwith, will facilitate patient's admission to the hospital, and symptoms of any perforation at this time, patient appears well and is hemodynamically stable. Pain is controlled at this time with morphine. Departure Diagnosis: Primary Impression: Acute appendicitis Acute appendicitis type: unspecified acute appendicitis type Qualified Code: K35.80 - Acute appendicitis, unspecified acute appendicitis type Condition: Fair FAVIOLA JESUS NP Oct 03, 2016 22:03
[2016-10-03 23:01] LABS: ADD SCAN DIFF NO
[2016-10-03 23:06] LABS: BASOPHILS % 0.2 % (0.0-2.0); HEMATOCRIT 35.6 % (37.0-47.0); HEMOGLOBIN 12.1 g/dl (12.0-16.0); LYMPHOCYTES # 0.7 10^3/ul (0.8-2.9); LYMPHOCYTES % 7.3 % (15.0-51.0); MEAN CORPUSCULAR HEMOGLOBIN 30.1 pg (29.0-33.0); MEAN CORPUSCULAR VOLUME 88.6 fl (82.0-101.0); MEAN PLATELET VOLUME 8.4 fl (7.4-10.4); MONOCYTE # 0.5 10^3/ul (0.3-0.9); MONOCYTES % 4.4 % (0.0-11.0); NEUTROPHIL # 8.9 10^3/ul (1.6-7.5); NEUTROPHILS % 87.4 % (39.0-77.0); PLATELET COUNT 312 10^3/UL (140-415); RED BLOOD COUNT 4.02 10^6/ul (4.20-5.40); RED CELL DISTRIBUTION WIDTH 11.9 % (11.5-14.5); WHITE BLOOD COUNT 10.2 10^3/ul (4.8-10.8)
[2016-10-03 23:25] LABS: ALBUMIN 4.4 g/dl (3.3-4.9); ALBUMIN/GLOBULIN RATIO 1.41; BILIRUBIN,INDIRECT 0.6 mg/dl (0-1.1); BILIRUBIN,TOTAL 0.6 mg/dl (0.2-1.3); CALCIUM 9.8 mg/dl (8.4-10.2); CREATININE 0.89 mg/dl (0.44-1.00); POTASSIUM 4.1 mmol/L (3.5-5.1); TOTAL PROTEIN 7.5 g/dl (6.1-8.1)
[2016-10-04] VITALS (15 sets, daily range): BP systolic 102–134; BP diastolic 55–69; PULSE 62–98; RESP 12–22; TEMP 97.6; Ht 165.1 cm; Wt 75.8 kg
[2016-10-04] MEDS ORDERED: IOHEXOL 300MG/ML 150 ML BTL ONE (00:20)
[2016-10-04] MEDS ORDERED: SOD CHLORIDE 0.9% 100 ML ONE (00:20)
[2016-10-04 01:01] LABS: ADD UMIC NO; UR ASCORBIC ACID NEGATIVE (NEGATIVE); UR BACTERIA FEW /HPF (NONE SEEN); UR BILIRUBIN (Dip) NEGATIVE (NEGATIVE); UR BLOOD (Dip) NEGATIVE (NEGATIVE); UR CLARITY SLIGHTLY CLOUDY (CLEAR); UR COLOR YELLOW (YELLOW); UR GLUCOSE (Dip) NEGATIVE (NEGATIVE); UR KETONES (Dip) NEGATIVE (NEGATIVE); UR LEUKOCYTE ESTERASE (Dip) NEGATIVE Leu/ul (NEGATIVE); UR MUCUS FEW /HPF (NONE SEEN); UR NITRITE (Dip) NEGATIVE (NEGATIVE); UR RBC 2 /HPF (0-5); UR SPECIFIC GRAVITY (Dip) 1.019 (1.003-1.030); UR SQUAMOUS EPITHELIAL CELL FEW /HPF (FEW); UR TOTAL PROTEIN (Dip) NEGATIVE (NEGATIVE); UR UROBILINOGEN (Dip) NEGATIVE (NEGATIVE)
--- NOTE | 2016-10-04 01:43 | RADRPT ---
PROCEDURE: CT abdomen and pelvis with intravenous contrast. CLINICAL INDICATION: Pain. TECHNIQUE: CT of the abdomen/pelvis was performed utilizing axial images with reconstructions in s agittal and coronal planes after uneventful administration of 100 cc Omnipaque 300. The administered radiation dose is CTDI 15.2 mGy, DLP 857 mGy-cm. COMPARISON: No pertinent prior examinations were submitted for comparison. FINDINGS: Visualized Chest: The visualized lung bases are clear. Abdomen: The liver, spleen, pancreas, gallbladder,and adrenal glands are unremarkable. The kidneys are without hydronephrosis. No definite urinary calculi are seen. The appendix is enlarged, measuring up to 12 mm. There are some mild periappendiceal inflammatory c hanges. No regional fluid collections are seen. There is no evidence of bowel obstruction. There is no evidence of intra-abdominal adenopathy or free fluid. Pelvis: There is no evidence of pelvic adenopathy. The uterus and ovaries are without enlargement. The uri nary bladder is unremarkable. There is no pelvic free fluid. Osseous structures: Unremarkable. IMPRESSION: Appendicitis. RPTAT: HIKT .Larry Reddy MD, MD Date Time Electronically viewed and signed by .Larry Reddy MD, on 10/04/2016 01:42 .T/
[2016-10-04] MEDS ORDERED: morphine 4 MG/ML VIAL IV STA (01:49)
[2016-10-04] MEDS ORDERED: PIPER-TAZO 3.375 GM IV (PMX) 100 ML IVPB ONE (02:30)
[2016-10-04] MEDS ORDERED: ONDANSETRON 4 MG INJ IV PRN ×2 (04:30→17:00)
[2016-10-04] MEDS: DEXTROSE 5%-0.45% NACL 1,000 ML IV SCH ×2 (04:39→14:30)
[2016-10-04 05:36] LABS: ADD SCAN DIFF NO
[2016-10-04 05:39] LABS: BASOPHILS % 0.2 % (0.0-2.0); EOSINOPHILS % 0.1 % (0.0-7.0); HEMATOCRIT 32.3 % (37.0-47.0); HEMOGLOBIN 10.4 g/dl (12.0-16.0); LYMPHOCYTES # 1.4 10^3/ul (0.8-2.9); LYMPHOCYTES % 17.4 % (15.0-51.0); MEAN CORPUSCULAR HEMOGLOBIN 29.1 pg (29.0-33.0); MEAN CORPUSCULAR HGB CONC 32.2 g/dl (32.0-37.0); MEAN CORPUSCULAR VOLUME 90.2 fl (82.0-101.0); MEAN PLATELET VOLUME 8.9 fl (7.4-10.4); MONOCYTE # 0.5 10^3/ul (0.3-0.9); MONOCYTES % 6.2 % (0.0-11.0); NEUTROPHIL # 6.2 10^3/ul (1.6-7.5); NEUTROPHILS % 75.9 % (39.0-77.0); PLATELET COUNT 272 10^3/UL (140-415); RED BLOOD COUNT 3.58 10^6/ul (4.20-5.40); RED CELL DISTRIBUTION WIDTH 12.2 % (11.5-14.5); WHITE BLOOD COUNT 8.1 10^3/ul (4.8-10.8)
[2016-10-04 06:18] LABS: ALBUMIN 3.6 g/dl (3.3-4.9); ALBUMIN/GLOBULIN RATIO 1.38; BILIRUBIN,INDIRECT 0.9 mg/dl (0-1.1); BILIRUBIN,TOTAL 0.9 mg/dl (0.2-1.3); CALCIUM 8.7 mg/dl (8.4-10.2); CREATININE 0.81 mg/dl (0.44-1.00); MAGNESIUM 1.7 mg/dl (1.7-2.5); PHOSPHORUS 3.9 mg/dl (2.5-4.9); POTASSIUM 3.6 mmol/L (3.5-5.1); TOTAL PROTEIN 6.2 g/dl (6.1-8.1)
[2016-10-04] MEDS: morphine 4 MG/ML VIAL IV PRN ×2 (07:50→12:54)
--- NOTE | 2016-10-04 11:16 | HP ---
DATE OF ADMISSION: 10/04/2016 CHIEF COMPLAINT: Abdominal pain. HISTORY OF PRESENT ILLNESS: The patient is a 25-year-old female with a history of asthma, depression/anxiety, and tubal ligation about 2 weeks ago, who presented to the emergency department complaining of abdominal pain for about 1 day. Pain is diffuse but mainly located in the right lower quadrant and epigastric area. She reported nausea but no vomiting. When she presented to the ER her vitals were stable. CBC and CMP were within normal limits. CT abdomen and pelvis with IV contrast shows enlarged appendix, measuring up to 12 mm, with some mild periappendiceal inflammatory change, findings suggestive of appendicitis. Patient was given ZOSYN and morphine, as well as IV fluids in the ER and now admitted for surgical evaluation. REVIEW OF SYSTEMS: All performed, negative except as in HPI. PAST MEDICAL HISTORY: Depression, anxiety, and asthma. PAST SURGICAL HISTORY: Tubal ligation about 2 weeks ago. ALLERGIES: COCONUT. LATEX. [place]. HOME MEDICATIONS: None listed. PHYSICAL EXAMINATION: VITALS: Stable. GENERAL: Patient lying in bed in no acute distress and appropriately speak in full sentences. HEENT: No evident deformity. Pupils reactive to light. . CARDIOVASCULAR: Regular rate and rhythm with no extra sounds. LUNGS: Clear. ABDOMEN: Soft. There is tenderness to deep palpation in the right lower quadrant area with no guarding, rebound tenderness, and no rigidity. EXTREMITIES: No edema. NEUROLOGIC: No focal deficit. LABORATORY: CBC and CMP are within normal limits. IMAGING: CT abdomen and pelvis with IV contrast shows appendicitis. IMPRESSION: 1. Acute appendicitis. 2. Abdominal pain secondary to above. 3. History of asthma. 4. History of anxiety/depression. 5. Recent tubal ligation, about 2 weeks ago. PLAN: Will keep npo with IV fluids. Will provide pain medication and antiemetics as needed. She is currently awaiting surgical evaluation by Dr Dwyer. Patient does have a history of anxiety and depression, but currently she is not reporting any issue; will monitor closely. She is also denying any suicidal or homicidal ideation. Her breathing is unlabored, and there is no wheezing and no signs suggestive of asthma exacerbation, but she will be treated accordingly if there is any sign of that. clinical course. Dictated By: Rahat Eduardo MD /arnulfo/lola /Document#: [id number]
[2016-10-04] MEDS: DIPHENHYDRAMINE 50 MG INJ IV PRN ×2 (12:54→19:51)
--- NOTE | 2016-10-04 15:03 | PN ---
Date/Time of Note Date/Time of Note DATE: 10/04/16 TIME: 15:01 Assessment/Plan VTE Prophylaxis VTE Prophylaxis Intervention: SCD's Lines/Catheters IV Catheter Type (from Nrs): Peripheral IV Assessment/Plan Chief Complaint/Hosp Course Patient is a 25-year-old female with a past medical history of asthma and anxiety and recent tubal ligation presented to the emergency department for abdominal pain, appendicitis is found Assessment Abdominal pain Appendicitis, acute History of asthma History of anxiety Recent tubal ligation Plan -Dr. Montero called, plan for OR today -monitor overnight -NPO for now, until after surgery, regular diet afterwards -likely DC tomorrow if stable. Valeriano Rogers DO Problems: Subjective 24 Hr Interval Summary Free Text/Dictation pain has lessened, but still there. no other acute complaints at this time Exam/Review of Systems Vital Signs Vitals Vital Signs Date Time Temp Pulse Resp B/P Pulse Ox O2 Delivery O2 Flow Rate FiO2 10/04/16 07:00 98.3 56 18 104/60 100 10/04/16 03:25 Room Air Intake and Output 10/03/16 10/03/16 10/04/16 15:00 23:00 07:00 Intake Total 300 ml Balance 300 ml Exam Physical exam General: Patient is laying in bed and answers questions appropriately Mentation: Patient is alert and oriented 4, Head: Normocephalic atraumatic Eyes: EOMI, pupils reactive to light Neck: Supple, nontender, midline Respiratory: Clear to auscultation bilaterally Cardiovascular: regular rate, no obvious murmurs Gastrointestinal: mild RLQ tender to palpation, bowel sounds heard. Neurological: Moves all extremities spontaneously Skin: No new skin lesions Results Result Diagram: 10/04/16 0441 10/04/16 0441 Results 24 hrs Laboratory Tests Test 10/03/16 22:50 10/04/16 00:07 10/04/16 04:41 White Blood Count 10.2 8.1 # Red Blood Count 4.02 #L 3.58 L Hemoglobin 12.1 # 10.4 L Hematocrit 35.6 #L 32.3 L Mean Corpuscular Volume 88.6 90.2 Mean Corpuscular Hemoglobin 30.1 29.1 Mean Corpuscular Hemoglobin Concent 34.0 32.2 Red Cell Distribution Width 11.9 12.2 Platelet Count 312 # 272 Mean Platelet Volume 8.4 8.9 Neutrophils % 87.4 H 75.9 Lymphocytes % 7.3 L 17.4 Monocytes % 4.4 6.2 Eosinophils % 0.0 0.1 Basophils % 0.2 0.2 Nucleated Red Blood Cells % 0.0 0.0 Neutrophils # 8.9 H 6.2 Lymphocytes # 0.7 L 1.4 Monocytes # 0.5 0.5 Eosinophils # 0.0 0.0 Basophils # 0.0 0.0 Nucleated Red Blood Cells # 0.0 0.0 Sodium Level 141 142 Potassium Level 4.1 3.6 Chloride Level 98 98 Carbon Dioxide Level 28 29 Anion Gap 19 H 19 H Blood Urea Nitrogen 12 10 Creatinine 0.89 0.81 Glucose Level 109 93 Calcium Level 9.8 8.7 Total Bilirubin 0.6 0.9 Direct Bilirubin 0.00 0.00 Indirect Bilirubin 0.6 0.9 Aspartate Amino Transf (AST/SGOT) 17 19 Alanine Aminotransferase (ALT/SGPT) 24 26 Alkaline Phosphatase 63 48 Total Protein 7.5 6.2 # Albumin 4.4 3.6 Globulin 3.10 2.60 Albumin/Globulin Ratio 1.41 1.38 Lipase 26 Urine Color YELLOW Urine Clarity SLIGHTLY CLOUDY A Urine pH 6.0 Urine Specific [place] 1.019 Urine Ketones NEGATIVE Urine Nitrite NEGATIVE Urine Bilirubin NEGATIVE Urine Urobilinogen NEGATIVE Urine Leukocyte Esterase NEGATIVE Urine Microscopic RBC 2 Urine Microscopic WBC 2 Urine Squamous Epithelial Cells FEW Urine Bacteria FEW A Urine Mucus FEW A Urine Hemoglobin NEGATIVE Urine Glucose NEGATIVE Urine Total Protein NEGATIVE Phosphorus Level 3.9 Magnesium Level 1.7 Medications Medications Current Medications Morphine Sulfate (morphine) 4 mg Q4H PRN IV PAIN Last administered on 12:54; Admin Dose 4 MG; Start 10/04/16 at 04:30 Ondansetron HCl 4 mg 4 mg Q6H PRN IV NAUSEA AND/OR VOMITING; Start 10/04/16 at 04:30 Dextrose/Sodium Chloride (D5-1/2ns) 1,000 ml @ 100 mls/hr Q10H IV Last administered on 10/04/16 04:39; Admin Dose 100 MLS/HR; Start 10/04/16 at 04:30 Diphenhydramine HCl (Benadryl) 25 mg Q6H PRN IV ITCHING Last administered on 12:54; Admin Dose 25 MG; Start 10/04/16 at 13:00 VALERIANO ROGERS Oct 04, 2016 15:03
[2016-10-04] MEDS ORDERED: LIDOCAINE 2% (SDV) 5 ML INJ ONE (16:14)
[2016-10-04] MEDS ORDERED: PROPOFOL 20 ML ONE (16:14)
[2016-10-04] MEDS ORDERED: MIDAZOLAM 1 MG/ML 2 ML INJ ONE (16:14)
--- NOTE | 2016-10-04 16:16 | CONS ---
Date/Time of Note Date/Time of Note DATE: 10/04/16 TIME: 16:09 Assessment/Plan Assessment/Plan Chief Complaint/Hosp Course 1. Abdominal pain associated with leukocytosis and CT findings are suggestive of acute appendicitis. -IV antibiotics -Pain control -Discussed with patient options of nonsurgical treatment just with antibiotics versus appendectomy. Risks and his alternatives were fully explained. Patient has opted to proceed with surgical removal of the appendix 2. BMI 28. -Encourage nutrition and exercise optimization 3. Anemia probably dilutional -Monitor 4. Asthma -Medical management 5. Anxiety and depression -Medical and psychiatric optimization Thank you very much for consulting me in this patient's care, Problems: Consultation Date/Type/Reason Admit Date/Time Oct 04, 2016 at 02:10 Date of Consultation: Oct 04, 2016 Type of Consultation: General surgery Reason for Consultation Abdominal pain Acute appendicitis BMI 28 Anemia Referring Provider: ADONAY GONZALES Hx of Present Illness Nicole Sorenson is a 25-year-old female with comorbidities who presents with overnight episode of abdominal pain that was generalized and now located mostly in the right lower quadrant. She has associated nausea and vomiting. She has subjective fevers. Her last bowel function including bowel movement and flatus were about a day and half ago. She denies any chest pain or shortness of breath. She denies any visual neurologic changes. No dysuria. No trauma or sick contacts. No previous history of the same. No skin color, urine color, stool color, eyeball color changes. No abnormal discharge. In the emergency room her workup identified low-grade temperature and stable vitals. She has normal WBC but left shift on CBC. CT scan shows acute appendicitis. Patient is admitted placed on antibiotics and surgical consult is obtained further evaluation and treatment. 12 point review of systems negative unless addressed in HPI Past Medical History Depression Anxiety Asthma BMI 28 Anemia Acute appendicitis, current Past Surgical History Mini lap tubal ligation 2-[address] 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 Alcohol Use: occasionally Smoking Status: Former smoker Drug Use: none Exam/Review of Systems Vital Signs Vitals Vital Signs Date Time Temp Pulse Resp B/P Pulse Ox O2 Delivery O2 Flow Rate FiO2 10/04/16 07:00 98.3 56 18 104/60 100 10/04/16 03:25 Room Air Intake and Output 10/03/16 10/03/16 10/04/16 15:00 23:00 07:00 Intake Total 300 ml Balance 300 ml Exam Constitutional: alert, obese, oriented, No distress Psych: confusion, nl mood/affect, No anxiety Head: atraumatic, normocephalic Eyes: EOMI, PERRL, nl conjunctiva, No icteric ENMT: mucosa pink and moist, nl external ears & nose, nl lips & teeth Neck: non-tender, No jvd Respiratory: normal air movement, No congested cough, No labored breathing Cardiovascular: nl pulses, regular rate and rhythm Gastrointestinal: soft, tender (Right lower quadrant mostly), No distended, No firm, No rebound or guarding Musculoskeletal: nl extremities to inspection, nl gait and stance, No joint tenderness Extremities: normal pulses, No calf tenderness, No edema Neurological: nl mental status, nl speech, nl strength Skin: nl turgor, No diaphoresis, No rash or lesions Lymph: nl lymph nodes Results Result Diagram: 10/04/1644010/04/16 0441 Results 24 hrs Laboratory Tests Test 10/03/16 22:50 10/04/16 00:07 10/04/16 04:41 White Blood Count 10.2 8.1 # Red Blood Count 4.02 #L 3.58 L Hemoglobin 12.1 # 10.4 L Hematocrit 35.6 #L 32.3 L Mean Corpuscular Volume 88.6 90.2 Mean Corpuscular Hemoglobin 30.1 29.1 Mean Corpuscular Hemoglobin Concent 34.0 32.2 Red Cell Distribution Width 11.9 12.2 Platelet Count 312 # 272 Mean Platelet Volume 8.4 8.9 Neutrophils % 87.4 H 75.9 Lymphocytes % 7.3 L 17.4 Monocytes % 4.4 6.2 Eosinophils % 0.0 0.1 Basophils % 0.2 0.2 Nucleated Red Blood Cells % 0.0 0.0 Neutrophils # 8.9 H 6.2 Lymphocytes # 0.7 L 1.4 Monocytes # 0.5 0.5 Eosinophils # 0.0 0.0 Basophils # 0.0 0.0 Nucleated Red Blood Cells # 0.0 0.0 Sodium Level 141 142 Potassium Level 4.1 3.6 Chloride Level 98 98 Carbon Dioxide Level 28 29 Anion Gap 19 H 19 H Blood Urea Nitrogen 12 10 Creatinine 0.89 0.81 Glucose Level 109 93 Calcium Level 9.8 8.7 Total Bilirubin 0.6 0.9 Direct Bilirubin 0.00 0.00 Indirect Bilirubin 0.6 0.9 Aspartate Amino Transf (AST/SGOT) 17 19 Alanine Aminotransferase (ALT/SGPT) 24 26 Alkaline Phosphatase 63 48 Total Protein 7.5 6.2 # Albumin 4.4 3.6 Globulin 3.10 2.60 Albumin/Globulin Ratio 1.41 1.38 Lipase 26 Urine Color YELLOW Urine Clarity SLIGHTLY CLOUDY A Urine pH 6.0 Urine Specific [place] 1.019 Urine Ketones NEGATIVE Urine Nitrite NEGATIVE Urine Bilirubin NEGATIVE Urine Urobilinogen NEGATIVE Urine Leukocyte Esterase NEGATIVE Urine Microscopic RBC 2 Urine Microscopic WBC 2 Urine Squamous Epithelial Cells FEW Urine Bacteria FEW A Urine Mucus FEW A Urine Hemoglobin NEGATIVE Urine Glucose NEGATIVE Urine Total Protein NEGATIVE Phosphorus Level 3.9 Magnesium Level 1.7 Medications Medications Current Medications Morphine Sulfate (morphine) 4 mg Q4H PRN IV PAIN Last administered on 12:54; Admin Dose 4 MG; Start 10/04/16 at 04:30 Ondansetron HCl 4 mg 4 mg Q6H PRN IV NAUSEA AND/OR VOMITING; Start 10/04/16 at 04:30 Dextrose/Sodium Chloride (D5-1/2ns) 1,000 ml @ 100 mls/hr Q10H IV Last administered on 10/04/16 04:39; Admin Dose 100 MLS/HR; Start 10/04/16 at 04:30 Diphenhydramine HCl (Benadryl) 25 mg Q6H PRN IV ITCHING Last administered on 12:54; Admin Dose 25 MG; Start 10/04/16 at 13:00 ISABEL DAVILA MD Oct 04, 2016 16:16
[2016-10-04] MEDS ORDERED: FENTAnyl 50 MCG/ML VIAL ONE (16:19)
[2016-10-04] MEDS ORDERED: PHENYLephrine (100 MCG/ML) 5ML SYG ONE (16:30)
[2016-10-04] MEDS ORDERED: PIPER-TAZO 3.375 GM IV (PMX) 100 ML ONE (16:51)
[2016-10-04] MEDS ORDERED: DIPHENHYDRAMINE 50 MG INJ IV PRN (17:00)
[2016-10-04] MEDS ORDERED: MEPERIDINE 25 MG INJ IV PRN (17:00)
[2016-10-04] MEDS ORDERED: HYDROmorphONE (0.2 MG/ML) 10ML SYG IV PRN ×3 (17:00)
[2016-10-04] MEDS ORDERED: PROCHLORPERAZINE 10 MG INJ IV PRN (17:00)
[2016-10-04] MEDS ORDERED: EPHEDrine SULFATE 50 MG/5 ML SYG ONE (17:05)
[2016-10-04] MEDS ORDERED: ONDANSETRON 4 MG INJ ONE (17:05)
[2016-10-04] MEDS ORDERED: FAMOTIDINE 20 MG INJ ONE (17:05)
[2016-10-04] MEDS ORDERED: DEXAMETHASONE 4 MG/ML 1 ML INJ ONE (17:05)
[2016-10-04] MEDS ORDERED: NEOSTIGMINE 3 MG/3 ML SYRINGE ONE (17:10)
[2016-10-04] MEDS ORDERED: GLYCOPYRROLATE 0.4 MG INJ ONE (17:10)
[2016-10-04] MEDS ORDERED: KETOROLAC 30 MG INJ ONE (17:21)
[2016-10-04] MEDS ORDERED: LIDOCAINE 1% (MPF) 30 ML INJ INJ ONE (17:22)
[2016-10-04] MEDS ORDERED: BUPIVACAINE 0.25%/EPI (SDV) 30 ML INJ INJ ONE (17:24)
[2016-10-04] MEDS ORDERED: ACETAMINOPHEN 325 MG TAB PO PRN (17:30)
[2016-10-04] MEDS ORDERED: HYDROmorphONE 1 MG/ML SYG IV PRN (17:30)
--- NOTE | 2016-10-04 17:40 | OPR ---
Date/Time of Note Date/Time of Note DATE: 10/04/16 TIME: 17:37 Operative Report Procedure Date: Oct 04, 2016 Anesthesia: general Procedure Description Preoperative Diagnosis 1. Acute appendicitis 2. BMI 28 Postoperative Diagnosis 1. Acute appendicitis 2. BMI 28 Operation Performed 1. Laparoscopic appendectomy 2. [place] anesthetic [place], [address] 3. Laparoscopic guided bilateral transversus abdominis plane block Surgeon: ISABEL DAVILA MD Anesthesia: general (Plus local plus regional) Anesthesiologist: Sharon Anderson MD Estimated Blood Loss: 5 ml's Specimens: Appendix Tubes/Drains None Complications: None Pt Condition Post Procedure: stable Disposition: PACU Indications: Per consult note. Risks include but are not limited to bleeding, infection, abscess, seroma, leak , damage to intestines or any intra-abdominal/intrapelvic structures, hernia formation, chronic pain, need for re-operations or further surgeries, LA, stroke , PE, DVT, pneumonia, organ failures, or even . Procedure Note: Patient was brought into the operating room, placed supine on the operating table, SCDs were placed, left arm was tucked, all pressure points were well- padded, preoperative antibiotics administered, and after induction of anesthesia , he was prepped and draped in usual sterile fashion, and timeout was performed. Incision was made supraumbilically and the Veress needle was safely place into the abdomen. After negative sip test, abdomen was insufflated to 15 mmHg with CO2. At this point Veress was removed and the 5 mm blunt trocar was placed into the abdomen. Laparoscopy was performed and no injuries were identified using a 5 mm 30 scope. Under direct visualization another 5 mm port was placed and left lower quadrant and 12 mm port in the suprapubic region, through her previous scar, avoiding the bladder. All incision sites were injected with quarter percent Marcaine with 1% lidocaine with epi. Bilateral transversus abdominis plane block was performed under laparoscopic visualization to aid with pain control intra-and postoperatively. Patient was placed in Trendelenburg and right side up. The appendix was found to be inflamed. The base was transected using Endo ALBERTINA white load automatic 35 mm stapler just on the cecum. The karlee were fired fully. The mesoappendix was transected with another white load stapler. Hemostasis was fully obtained. The appendix was placed in an Endo Catch bag and removed through the suprapubic port site. That fascia was closed with Endo Close and 0 Vicryl in a figure-of- eight manner avoiding the bladder. Ports and CO2 were removed under direct visualization, wounds were fully irrigated, and skin was closed in subcuticular fashion using 4-0 Monocryl. Dermabond was applied. All counts were correct and the end of the operation 2. Patient was extubated and transferred to recovery room in stable condition. ISABEL DAVILA MD Oct 04, 2016 17:39
[2016-10-04] MEDS: FENTAnyl 50 MCG/ML VIAL IV PRN ×2 (17:49→17:55)
[2016-10-04] MEDS ORDERED: ACETAMINOPHEN 500 MG TAB PO PRN (18:00)
[2016-10-04] MEDS: D5-NS + KCL 20 MEQ 1,000 ML IV SCH (18:53)
[2016-10-04] MEDS: PIPER-TAZO 3.375 GM IV (PMX) 100 ML IVPB SCH (21:35)
[2016-10-05] MEDS: PIPER-TAZO 3.375 GM IV (PMX) 100 ML IVPB SCH ×3 (05:21→13:33)
[2016-10-05] MEDS: D5-NS + KCL 20 MEQ 1,000 ML IV SCH (05:24)
[2016-10-05 05:53] LABS: ADD SCAN DIFF NO
[2016-10-05 05:59] LABS: ABNORMAL IP MESSAGE 1; HEMATOCRIT 32.1 % (37.0-47.0); HEMOGLOBIN 10.7 g/dl (12.0-16.0); LYMPHOCYTES # 0.4 10^3/ul (0.8-2.9); LYMPHOCYTES % 9.5 % (15.0-51.0); MEAN CORPUSCULAR HEMOGLOBIN 30.1 pg (29.0-33.0); MEAN CORPUSCULAR HGB CONC 33.3 g/dl (32.0-37.0); MEAN CORPUSCULAR VOLUME 90.4 fl (82.0-101.0); MEAN PLATELET VOLUME 8.9 fl (7.4-10.4); MONOCYTE # 0.1 10^3/ul (0.3-0.9); MONOCYTES % 2.2 % (0.0-11.0); NEUTROPHIL # 4.1 10^3/ul (1.6-7.5); NEUTROPHILS % 87.7 % (39.0-77.0); PLATELET COUNT 273 10^3/UL (140-415); RED BLOOD COUNT 3.55 10^6/ul (4.20-5.40); RED CELL DISTRIBUTION WIDTH 11.8 % (11.5-14.5); WHITE BLOOD COUNT 4.6 10^3/ul (4.8-10.8)
[2016-10-05] MEDS ORDERED: PANTOPRAZOLE (EC) 40 MG TAB PO SCH (06:00)
[2016-10-05 06:14] LABS: CALCIUM 9.2 mg/dl (8.4-10.2); CREATININE 0.77 mg/dl (0.44-1.00); MAGNESIUM 1.8 mg/dl (1.7-2.5); PHOSPHORUS 3.9 mg/dl (2.5-4.9); POTASSIUM 4.2 mmol/L (3.5-5.1)
[2016-10-05] MEDS: HYDROCODONE/APAP (5/325) TAB PO PRN ×2 (07:48→12:01)
[2016-10-05 08:00] VITALS: BP 120/74; RESP 18
--- NOTE | 2016-10-05 10:08 | PN ---
Date/Time of Note Date/Time of Note DATE: 10/05/16 TIME: 10:01 Assessment/Plan Lines/Catheters IV Catheter Type (from Nrs): Peripheral IV [place] in Place (from Nrs): No Assessment/Plan Chief Complaint/Hosp Course 1. Appendicitis s/p lap appendectomy 10/04; tolerating diet -IV antibiotics -Pain control -ambulate -IS 2. BMI 28. -Encourage nutrition and exercise optimization 3. Anemia probably dilutional: H/H stable -Monitor 4. Asthma -Medical management 5. Anxiety and depression -Medical and psychiatric optimization 6. Leukopenia: -monitor Patient seen and examined in collaboration with Dr. Harsh Dwyer Problems: Subjective 24 Hr Interval Summary Feels well. Discomfort to the lower abdomen. No n/v/d. Tolerating diet. No flatus/bm. No [place], dizziness, sob, cp, palpitations, fevers, chills. Exam/Review of Systems Vital Signs Vitals Vital Signs Date Time Temp Pulse Resp B/P Pulse Ox O2 Delivery O2 Flow Rate FiO2 10/05/16 08:00 97.7 52 18 120/74 100 10/04/16 18:45 Room Air Intake and Output 10/04/16 10/04/16 10/05/16 15:00 23:00 07:00 Intake Total 700 ml 1600 ml 880 ml Output Total 10 ml Balance 700 ml 1590 ml 880 ml Exam Free Text/Dictation Constitutional: alert, obese, oriented, No distress Psych: confusion, nl mood/affect, No anxiety Head: atraumatic, normocephalic Eyes: EOMI, PERRL, nl conjunctiva, No icteric ENMT: mucosa pink and moist, nl external ears & nose, nl lips & teeth Neck: non-tender, No jvd Respiratory: normal air movement, No congested cough, No labored breathing Cardiovascular: nl pulses, regular rate and rhythm Gastrointestinal: soft, tender, incision sites, clean, no drainage No distended, No firm, No rebound or guarding Musculoskeletal: nl extremities to inspection, nl gait and stance, No joint tenderness Extremities: normal pulses, No calf tenderness, No edema Neurological: nl mental status, nl speech, nl strength Skin: nl turgor, No diaphoresis, No rash or lesions Lymph: nl lymph nodes Results Result Diagram: 10/05/1644110/05/16441 DESMOND QUINTERO NP Oct 05, 2016 10:08
--- NOTE | 2016-10-05 11:41 | PDOCDIS ---
Discharge Instructions DIAGNOSIS Discharge Diagnosis Acute Appendicitis CONDITION Patient Condition: Stable HOME CARE INSTRUCTIONS: Your diet recommendation is: full liquids, slowly advance diet. ACTIVITY: Activity Restrictions: Slowly Increase Activity Bathing Restrictions: Shower FOLLOW UP/APPOINTMENTS Follow-up Plan Please follow up with your primary care provider and Dr. Isabel Davila within 1 -2 weeks. REFERRALS Referring Provider: ISABEL DAVILA MD SCHOOL/WORK RELEASE May return to School/Work on: Oct 06, 2016 May return to School/Work with: With Restrictions School/Work Release Comment: light duty for 1 week PRIYANKA ROGERS Oct 05, 2016 11:41
[2016-10-05] MEDS ORDERED: HYDR-906 PO (11:44)
[2016-10-05] MEDS ORDERED: HYDROCODONE/APAP (5/325) TAB PO ONE (12:00)
--- NOTE | 2016-10-05 13:37 | DS ---
Date/Time of Note Date/Time of Note DATE: 10/05/16 TIME: 13:34 Discharge Summary Admission/Discharge Info Admit Date/Time Oct 04, 2016 at 02:10 Discharge Date/Time Discharge Diagnosis Acute Appendicitis Patient Condition: Stable Hospital Course Patient is a 25-year-old female with a past medical history of recent tubal ligation who presents to [facility] for abdominal pain found to have acute appendicitis. General surgery was consulted and performed an appendectomy laparoscopically and patient returned to the unit without any complications. Patient is tolerating clears well and complains of minimal abdominal pain. After speaking with general surgery patient is cleared for discharge to follow-up in 1-2 weeks. Patient will be discharged with a small amount of narcotic pain medication for her suture sites. Patient is happy to go home and understands that she will advance her diet very slowly. Patient is to also perform light duty at work. Home Meds Active Scripts Hydrocodone/Acetaminophen ([place] 5-325 Tablet) 1 Each Tablet, 1 EACH PO Q8 for PAIN for 7 Days, #21 TAB Prov:PRIYANKA ROGERS 10/05/16 Follow-up Plan f/u with Dr. Dwyer in the outpatient setting Primary Care Provider [facility] Time spent on discharge: > 30 minutes Pending Labs Laboratory Tests Test 10/05/16 04:42 White Blood Count 4.610^3/ul (4.8-10.8) Red Blood Count 3.5510^6/ul (4.20-5.40) Hemoglobin 10.7g/dl (12.0-16.0) Hematocrit 32.1% (37.0-47.0) Mean Corpuscular Volume 90.4fl (82.0-101.0) Mean Corpuscular Hemoglobin 30.1pg (29.0-33.0) Mean Corpuscular Hemoglobin Concent 33.3g/dl (32.0-37.0) Red Cell Distribution Width 11.8% (11.5-14.5) Platelet Count 93756^3/UL (140-415) Mean Platelet Volume 8.9fl (7.4-10.4) Neutrophils % 87.7% (39.0-77.0) Lymphocytes % 9.5% (15.0-51.0) Monocytes % 2.2% (0.0-11.0) Eosinophils % 0.0% (0.0-7.0) Basophils % 0.0% (0.0-2.0) Nucleated Red Blood Cells % 0.0/100WBC (0.0-0.0) Neutrophils # 4.110^3/ul (1.6-7.5) Lymphocytes # 0.410^3/ul (0.8-2.9) Monocytes # 0.110^3/ul (0.3-0.9) Eosinophils # 0.010^3/ul (0.0-0.5) Basophils # 0.010^3/ul (0.0-0.1) Nucleated Red Blood Cells # 0.010^3/ul (0.0-0.0) Sodium Level 143mmol/L (135-144) Potassium Level 4.2mmol/L (3.5-5.1) Chloride Level 104mmol/L (97-110) Carbon Dioxide Level 26mmol/L (21-31) Anion Gap 17 (8-16) Blood Urea Nitrogen 6mg/dl (7-20) Creatinine 0.77mg/dl (0.44-1.00) Glucose Level 144mg/dl (70-220) Calcium Level 9.2mg/dl (8.4-10.2) Phosphorus Level 3.9mg/dl (2.5-4.9) Magnesium Level 1.8mg/dl (1.7-2.5) PRIYANKA RGOERS Oct 05, 2016 13:37
== END 2016-10-05 14:43 | disposition home or self-care (01) | DRG 343 ==
LOC: FTE 20:54 → MS1 10-04 02:10
PROVIDERS: ADMIT Internal Medicine; ATTEND Internal Medicine
PROC: 0DTJ4ZZ Resection of Appendix, Percutaneous Endoscopic Approach (ICD-10-PCS; principal; 2016-10-04 16:30)
DX: K35.80 Unspecified acute appendicitis (principal); F32.9 Major depressive disorder, single episode, unspecified; J45.909 Unspecified asthma, uncomplicated; F41.9 Anxiety disorder, unspecified; D64.9 Anemia, unspecified; D72.819 Decreased white blood cell count, unspecified
CPT/HCPCS: 74177; 80048; 80053; 81001; 81003; 83690; 83735; 84100; 85025; 88304; J1100; J1170; J1200; J1885; J2250; J2270; J2370; J2405; J2543; J2710; J3010; J3480; J7030; J7042; Q9967